=== PATIENT | male | born 1950 | race Caucasian/White ===

== ENCOUNTER 2017-12-22 21:25 | Emergency (ER) | payer MEDICARE, OTHER ==
[2017-12-22 22:08] LABS: BILIRUBIN,URINE SMALL (NEG); CLARITY,URINE CLEAR; COLOR,URINE AMBER; GLUCOSE,URINE NEGATIVE (NEG); NITRITE,URINE NEGATIVE (NEG); PH,URINE 5.5; PROTEIN,URINE NEGATIVE (NEG-TRACE)
[2017-12-22 22:12] LABS: BACTERIA,URINE 0 /HPF (0-FEW); RBC,URINE 0 /HPF (0-2); SQUAMOUS EPITHELIAL CELL,UR FEW /LPF; WBC,URINE OCC /HPF (0-4)
[2017-12-22 22:15] LABS: ANION GAP 10 (6-14); BLOOD UREA NITROGEN 20 mg/dL (8-26); BUN/CREATININE RATIO 17 (6-20); CALCIUM 8.4 mg/dL (8.5-10.1); CARBON DIOXIDE 25 mmol/L (21-32); CHLORIDE 105 mmol/L (98-107); CREATININE 1.2 mg/dL (0.7-1.3); GFR 60.6; GLUCOSE 110 mg/dL (70-99); POTASSIUM 4.3 mmol/L (3.5-5.1); SODIUM 140 mmol/L (136-145)
[2017-12-22 22:16] LABS: BASO % 0 % (0-3); EOS # 0.1 x10^3/uL (0.0-0.7); EOS % 1 % (0-3); HEMATOCRIT 37.9 % (39.0-53.0); HEMOGLOBIN 13.6 g/dL (13.0-17.5); LYMPH # 0.3 x10^3/uL (1.0-4.8); LYMPH % 4 % (24-48); MEAN CORPUSCULAR HEMOGLOBIN 36 pg (25-35); MEAN CORPUSCULAR HGB CONC 36 g/dL (31-37); MEAN CORPUSCULAR VOLUME 100 fL (79-100); MONO # 0.6 x10^3/uL (0.0-1.1); MONO % 8 % (0-9); NEUT # 6.9 x10^3uL (1.8-7.7); NEUT % 87 % (31-73); PLATELET COUNT 78 x10^3/uL (140-400); RED BLOOD COUNT 3.81 x10^6/uL (4.30-5.70); RED CELL DISTRIBUTION WIDTH 14.8 % (11.5-14.5)
[2017-12-22 22:17] LABS: ADD MAN DIFF? YES
[2017-12-22 22:20] LABS: ALBUMIN 3.2 g/dL (3.4-5.0); ALBUMIN/GLOBULIN RATIO 0.9 (1.0-1.7); ALK PHOS 76 U/L (46-116); ALT (SGPT) 23 U/L (16-63); AST (SGOT) 34 U/L (15-37); TOTAL PROTEIN 6.6 g/dL (6.4-8.2)
[2017-12-22] MEDS: IV NORMAL SALINE 1000ML BAG 1,000 ML IV (22:40)
[2017-12-22 22:56] LABS: % BANDS 3 % (0-9); % BASOS 1 % (0-3); % EOS 1 % (0-5); % LYMPHS 5 % (24-48); % MONOS 5 % (0-10); % SEGS 85 % (35-66); PLT ESTIMATE DECREASED (ADEQUATE)
[2017-12-22] MEDS: KETOROLAC 15 MG/ML VIAL. IV (23:21)
[2017-12-22] MEDS: MORPHINE SULFATE 2 MG/ML DISP.SYRIN. IV (23:27)
== END 2017-12-23 00:24 | disposition home or self-care (01) ==
LOC: ER 12-23 00:24
DX: R51 Headache (principal); N39.0 Urinary tract infection, site not specified; K76.6 Portal hypertension
CPT/HCPCS: 36415; 70450; 80053; 81001; 85007; 85025; 87086; 96374; 96375; 99285-25; J1885; J2270; J7030

== ENCOUNTER 2018-02-07 17:34 | Emergency (ER) | payer MEDICARE ==
[2018-02-07 17:02] LABS: ADD MAN DIFF? NO
[2018-02-07] MEDS: HYDROcodone/APAP 5/325MG 1 TAB TABLET PO (17:10)
[2018-02-07 17:12] LABS: BASO % 1 % (0-3); EOS # 0.2 x10^3/uL (0.0-0.7); EOS % 6 % (0-3); HEMATOCRIT 35.1 % (39.0-53.0); HEMOGLOBIN 12.7 g/dL (13.0-17.5); LYMPH # 0.7 x10^3/uL (1.0-4.8); LYMPH % 20 % (24-48); MEAN CORPUSCULAR HEMOGLOBIN 36 pg (25-35); MEAN CORPUSCULAR HGB CONC 36 g/dL (31-37); MEAN CORPUSCULAR VOLUME 99 fL (79-100); MONO # 0.5 x10^3/uL (0.0-1.1); MONO % 12 % (0-9); NEUT # 2.3 x10^3uL (1.8-7.7); NEUT % 61 % (31-73); PLATELET COUNT 113 x10^3/uL (140-400); RED BLOOD COUNT 3.53 x10^6/uL (4.30-5.70); RED CELL DISTRIBUTION WIDTH 14.7 % (11.5-14.5); WHITE BLOOD COUNT 3.7 x10^3/uL (4.0-11.0)
[2018-02-07 17:18] LABS: ANION GAP 7 (6-14); BLOOD UREA NITROGEN 16 mg/dL (8-26); BUN/CREATININE RATIO 13 (6-20); CALCIUM 8.3 mg/dL (8.5-10.1); CARBON DIOXIDE 27 mmol/L (21-32); CHLORIDE 106 mmol/L (98-107); CREATININE 1.2 mg/dL (0.7-1.3); GFR 60.6; GLUCOSE 109 mg/dL (70-99); POTASSIUM 3.8 mmol/L (3.5-5.1); SODIUM 140 mmol/L (136-145)
[2018-02-07 17:33] LABS: ALBUMIN 2.8 g/dL (3.4-5.0); ALBUMIN/GLOBULIN RATIO 0.7 (1.0-1.7); ALK PHOS 95 U/L (46-116); ALT (SGPT) 23 U/L (16-63); AST (SGOT) 29 U/L (15-37); TOTAL BILIRUBIN 2.2 mg/dL (0.2-1.0)
== END 2018-02-07 18:25 | disposition home or self-care (01) ==
LOC: ER 18:25
DX: L03.116 Cellulitis of left lower limb (principal); J45.909 Unspecified asthma, uncomplicated; K76.6 Portal hypertension
CPT/HCPCS: 36415; 80053; 83605; 85025; 99284

== ENCOUNTER → 2018-04-01 | Outpatient (CLI) | payer MEDICARE ==
[2018-03-19 13:08] VITALS: BP 137/64
[~2018-04-01] MED LIST: ACET-704 PO; CLIN300C8 PO; FURO20TA3 PO; HYDR-971 PO; LEVO750T31 PO; PROP20TA PO; SOFO400T PO; SPIR50TA4 PO; SULF1TAB24 PO; TAMS0.4C97 PO; [UNRECOGNIZED DRUG - OTHER] PO
== END | disposition home or self-care (01) ==
LOC: PMGWOUND 11:14
PROVIDERS: ATTEND Emergency Medicine Undersea and Hyperbaric Medicine
DX: S90.562A Insect bite (nonvenomous), left ankle, initial encounter (principal); K74.60 Unspecified cirrhosis of liver; J45.909 Unspecified asthma, uncomplicated; K21.9 Gastro-esophageal reflux disease without esophagitis; Z86.19 Personal history of other infectious and parasitic diseases; W57.XXXA Bitten or stung by nonvenomous insect and other nonvenomous arthropods, initial encounter; Y93.89 Activity, other specified; Y92.89 Other specified places as the place of occurrence of the external cause; Y99.8 Other external cause status
CPT/HCPCS: 97597

== ENCOUNTER → 2018-04-08 | Outpatient (CLI) | payer MEDICARE ==
[2018-03-19 13:08] VITALS: BP 137/64
== END | disposition home or self-care (01) ==
LOC: PMGWOUND 10:54
PROVIDERS: ATTEND Emergency Medicine Undersea and Hyperbaric Medicine
DX: S90.562D Insect bite (nonvenomous), left ankle, subsequent encounter (principal); J45.909 Unspecified asthma, uncomplicated; K21.9 Gastro-esophageal reflux disease without esophagitis; K74.60 Unspecified cirrhosis of liver; Z86.19 Personal history of other infectious and parasitic diseases; W57.XXXD Bitten or stung by nonvenomous insect and other nonvenomous arthropods, subsequent encounter
CPT/HCPCS: 97597

== ENCOUNTER → 2018-04-16 | Outpatient (CLI) | payer MEDICARE ==
[2018-03-19 13:08] VITALS: BP 137/64
== END | disposition home or self-care (01) ==
LOC: PMGWOUND 11:42
PROVIDERS: ATTEND Emergency Medicine Undersea and Hyperbaric Medicine
DX: S90.562D Insect bite (nonvenomous), left ankle, subsequent encounter (principal); J45.909 Unspecified asthma, uncomplicated; K21.9 Gastro-esophageal reflux disease without esophagitis; K74.60 Unspecified cirrhosis of liver; Z86.19 Personal history of other infectious and parasitic diseases; W57.XXXD Bitten or stung by nonvenomous insect and other nonvenomous arthropods, subsequent encounter
CPT/HCPCS: 97597

== ENCOUNTER → 2018-04-24 | Outpatient (CLI) | payer MEDICARE ==
[2018-03-19 13:08] VITALS: BP 137/64
== END | disposition home or self-care (01) ==
LOC: PMGWOUND 12:08
PROVIDERS: ATTEND Emergency Medicine Undersea and Hyperbaric Medicine
DX: S90.562D Insect bite (nonvenomous), left ankle, subsequent encounter (principal); J45.909 Unspecified asthma, uncomplicated; K21.9 Gastro-esophageal reflux disease without esophagitis; K74.60 Unspecified cirrhosis of liver; Z86.19 Personal history of other infectious and parasitic diseases; W57.XXXD Bitten or stung by nonvenomous insect and other nonvenomous arthropods, subsequent encounter
CPT/HCPCS: 99214; G0463

== ENCOUNTER → 2018-05-08 | Outpatient (CLI) | payer MEDICARE ==
[2018-03-19 13:08] VITALS: BP 137/64
== END | disposition home or self-care (01) ==
LOC: PMGWOUND 11:01
PROVIDERS: ATTEND Emergency Medicine Undersea and Hyperbaric Medicine
DX: T63.331D Toxic effect of venom of brown recluse spider, accidental (unintentional), subsequent encounter (principal); K21.9 Gastro-esophageal reflux disease without esophagitis; J45.909 Unspecified asthma, uncomplicated; K74.60 Unspecified cirrhosis of liver; Z86.19 Personal history of other infectious and parasitic diseases
CPT/HCPCS: 99213

== ENCOUNTER 2019-02-22 18:40 | Inpatient (IN) | payer MEDICARE ==
[~2019-02-22] VITALS: Ht 162.6 cm; Wt 109.5 kg
[~2019-02-22 18:40] MED LIST changes: +HYDR-3164 PO; -HYDR-971 PO
[2019-02-22 19:13] LABS: CLARITY,URINE CLEAR; COLOR,URINE ORANGE
[2019-02-22 19:19] LABS: RBC,URINE 0 /HPF (0-2)
[2019-02-22 19:20] LABS: BACTERIA,URINE 0 /HPF (0-FEW); SQUAMOUS EPITHELIAL CELL,UR FEW /LPF
--- NOTE | 2019-02-22 19:44 | PHYS DOC ---
Past Medical History Past Medical History: Hepatitis Additional Past Medical Histor: Hep C-treated, varices, portal hypertension Past Surgical History: Other Additional Past Surgical Histo: cyst removed from neck, TIPS Additional Information: Nonsmoker Alcohol Use: Occasionally Drug Use: None Adult General Chief Complaint Chief Complaint: LOWER EXTREMITY SWELLING HPI HPI 69 y/o male presents via EMS with report of bilateral lower leg swelling (R>L) x 2 days. EMS also reports concern for poor living conditions and inability for patient to care for self. Reports seeing patient's place of living is filthy, packed with garbage, and full of "rodent droppings" and "insects". Denies denies fever/chills. Denies chest pain. Denies history of DVT/PE or known family history of same. Review of Systems Review of Systems Constitutional: Denies fever or chills Eyes: Denies change in visual acuity, redness, or eye pain HENT: Denies nasal congestion or sore throat Respiratory: Denies cough or shortness of breath Cardiovascular: Denies chest pain or palpitations GI: Denies abdominal pain, nausea, vomiting, or diarrhea : Denies dysuria or hematuria Musculoskeletal: Denies back pain; reports leg swelling Integument: Denies rash or skin lesions; reports erythema to right leg Neurologic: Denies headache, focal weakness or sensory changes Complete systems were reviewed and found to be within normal limits, except as documented in this note. Current Medications Current Medications Current Medications Medications (Trade) Dose Ordered Sig/[place] Start Time Stop Time Status Last Admin Dose Admin Aspirin (David Aspirin) 325 mg 1X ONCE 02/22/19 19:45 02/22/19 19:46 DC 02/22/19 20:00 325 MG Allergies Allergies Allergies Coded Allergies Type Severity Reaction Last Updated Verified No Known Drug Allergies 10/06/15 No Physical Exam Physical Exam Constitutional: Well developed, well nourished, no acute distress, non-toxic appearance, poor hygiene HENT: Normocephalic, atraumatic, oropharynx moist, nose normal Eyes: Conjunctiva normal, no discharge Neck: Normal range of motion, no tenderness, supple, no meningeal signs Cardiovascular: Heart rate normal and regular rhythm Lungs & Thorax: Bilateral breath sounds clear to auscultation, no respiratory distress Abdomen: Soft, no tenderness Skin: Warm, dry, no erythema, no rash Extremities: RLE tenderness and anterior erythema, ROM intact, 2+ edema to RLE, 1+ to LLE Neurologic: Alert and oriented X 3, no focal deficits noted Psychologic: Affect normal, judgement normal Current Patient Data Vital Signs Vital Signs Date Time Temp Pulse Resp B/P (MAP) Pulse Ox O2 Delivery O2 Flow Rate FiO2 02/22/19 19:14 99.5 72 16 183/77 (112) 97 Room Air 99.5 Lab Values Laboratory Tests Test 02/22/19 18:55 02/22/19 19:45 Urine Collection Type Unknown Urine Color [place] Urine Clarity Clear Urine pH Urine Specific [place] 1.025 Urine Protein mg/dL (NEG-TRACE) Urine Glucose (UA) mg/dL (NEG) Urine Ketones (Stick) mg/dL (NEG) Urine Blood (NEG) Urine Nitrite (NEG) Urine Bilirubin (NEG) Urine Urobilinogen Dipstick mg/dL (0.2 mg/dL) Urine Leukocyte Esterase (NEG) Urine RBC 0 /HPF (0-2) Urine WBC 1-4 /HPF (0-4) Urine Squamous Epithelial Cells Few /LPF Urine Bacteria 0 /HPF (0-FEW) Urine Mucus Slight /LPF Urine Opiates Screen Neg (NEG) Urine Methadone Screen Neg (NEG) Urine Barbiturates Neg (NEG) Urine Phencyclidine Screen Neg (NEG) Urine Amphetamine/Methamphetamine Neg (NEG) Urine Benzodiazepines Screen Neg (NEG) Urine Cocaine Screen Neg (NEG) Urine Cannabinoids Screen Neg (NEG) Urine Ethyl Alcohol Neg (NEG) White Blood Count 5.8 x10^3/uL (4.0-11.0) Red Blood Count 3.93 x10^6/uL (4.30-5.70) L Hemoglobin 14.1 g/dL (13.0-17.5) Hematocrit 39.2 % (39.0-53.0) Mean Corpuscular Volume 100 fL (79-100) Mean Corpuscular Hemoglobin 36 pg (25-35) H Mean Corpuscular Hemoglobin Concent 36 g/dL (31-37) Red Cell Distribution Width 14.4 % (11.5-14.5) Platelet Count 90 x10^3/uL (140-400) L Neutrophils (%) (Auto) 77 % (31-73) H Lymphocytes (%) (Auto) 10 % (24-48) L Monocytes (%) (Auto) 11 % (0-9) H Eosinophils (%) (Auto) 1 % (0-3) Basophils (%) (Auto) 1 % (0-3) Neutrophils # (Auto) 4.5 x10^3/uL (1.8-7.7) Lymphocytes # (Auto) 0.6 x10^3/uL (1.0-4.8) L Monocytes # (Auto) 0.7 x10^3/uL (0.0-1.1) Eosinophils # (Auto) 0.1 x10^3/uL (0.0-0.7) Basophils # (Auto) 0.1 x10^3/uL (0.0-0.2) Prothrombin Time 15.4 SEC (11.7-14.0) H Prothrombin Time INR 1.3 (0.8-1.1) H Activated Partial Thromboplast Time 26 SEC (24-38) D-Dimer (Edwige) 1.81 ug/mlFEU (0.00-0.50) H Sodium Level 142 mmol/L (136-145) Potassium Level 3.9 mmol/L (3.5-5.1) Chloride Level 106 mmol/L (98-107) Carbon Dioxide Level 24 mmol/L (21-32) Anion Gap 12 (6-14) Blood Urea Nitrogen 25 mg/dL (8-26) Creatinine 1.4 mg/dL (0.7-1.3) H Estimated GFR (Cockcroft-Gault) 50.4 BUN/Creatinine Ratio 18 (6-20) Glucose Level 99 mg/dL (70-99) Lactic Acid Level 1.9 mmol/L (0.4-2.0) Calcium Level 8.5 mg/dL (8.5-10.1) Magnesium Level 1.6 mg/dL (1.8-2.4) L Total Bilirubin 5.0 mg/dL (0.2-1.0) H Aspartate Amino Transferase (AST) 55 U/L (15-37) H Alanine Aminotransferase (ALT) 31 U/L (16-63) Alkaline Phosphatase 46 U/L (46-116) Creatine Kinase 317 U/L (39-308) H Creatine Kinase MB (Mass) 1.1 ng/mL (0.0-3.6) Creatine Kinase MB Relative Index 0.3 % (0-4) Troponin I Quantitative 0.033 ng/mL (0.000-0.055) DA-Ngl-S-Type Natriuretic Peptide 222 pg/mL (0-124) H Total Protein 6.6 g/dL (6.4-8.2) Albumin 3.1 g/dL (3.4-5.0) L Albumin/Globulin Ratio 0.9 (1.0-1.7) L Lipase 143 U/L (73-393) Ethyl Alcohol Level < 10 mg/dL (0-10) Laboratory Tests 02/22/19 19:45 Laboratory Tests 02/22/19 19:45 EKG EKG @1934 NSR at 68bpm, NO ST elevation, Q wave I, II, and AVL Radiology/Procedures Radiology/Procedures PROCEDURE: VENOUS LOWER EXTREMITY RIGHT Exam: Right lower extremity venous duplex study INDICATION: Leg swelling TECHNIQUE: Using a combination of real-time ultrasound imaging and color-flow and pulse Doppler imaging techniques along with graded compression and augmentation, duplex evaluation of the deep venous systems of the rightlower extremity was performed. Multiple images were obtained. Findings: There is no sonographic evidence for deep venous thrombosis involving the visualized deep venous structures of the right lower extremity. Right inguinal lymph node measuring 2.1 cm in long axis. IMPRESSION: 1. No acute DVT in the right lower extremities. 2. A 2.1 cm lymph node in the right inguinal region which is nonspecific and may be reactive. Short-term imaging or clinical follow-up is recommended to ensure resolution. Electronically signed by: Mario Carr MD (02/22/2019 8:03 PM) [facility] PROCEDURE: CHEST AP ONLY Chest radiograph 02/23/2019 12:02 AM INDICATION: Shortness of air COMPARISON: October 10, 2015 TECHNIQUE: Portable frontal semi-upright view of the chest is provided. FINDINGS: The cardiomediastinal silhouette is borderline enlarged. There are no pleural effusions. There is no pulmonary vascular congestion. There is no pneumothorax. The lungs are clear. No significant osseous abnormality is identified. IMPRESSION: Borderline enlarged cardiomediastinal silhouette which may reflect cardiomyopathy versus pericardial effusion. Findings appear progressed since October 10, 2015. Electronically signed by: Breana Webb MD (02/23/2019 9:31 AM) [id number] PROCEDURE: CT ANGIOGRAPHY CHEST CTA chest with contrast dated 2018. Comparison made to 09/29/2015. CLINICAL INDICATION: Shortness of breath. Elevated d-dimer. Evaluate for pulmonary embolus. TECHNIQUE: Contiguous axial imaging the chest performed following the intravenous demonstration of 75 cc Omnipaque 350. Study was performed as dedicated PE protocol with thin cut coronal MIPS 3-D reconstruction. One or more of the following individualized dose reduction techniques were utilized for this examination: 1. Automated exposure control 2. Adjustment of the mA and/or kV according to patient size 3. Use of iterative reconstruction technique. FINDINGS: Contrast bolus is adequate. No evidence of central, lobar or segmental pulmonary embolus. The subsegmental branches are not well evaluated based on technique. Heart size mildly enlarged. No pericardial effusion. No mediastinal, hilar or axillary lymphadenopathy. Thyroid gland unremarkable. Central airways are patent. Mild diffuse bronchial wall thickening. No consolidation or pleural effusion. No pneumothorax. Images of the upper abdomen show a TIPS in place. Spleen is moderately enlarged. The liver is nodular in contour. Bone windows show no acute findings. Mild multilevel spondylosis. IMPRESSION: 1. No evidence of central, lobar or segmental pulmonary embolus. 2. Clear lungs. 3. Findings consistent with cirrhosis with splenomegaly and portal hypertension. TIPS in place. Electronically signed by: Barrett Diane MD (02/23/2019 5:34 AM) [facility] Course & Med Decision Making Course & Med Decision Making Pertinent Labs and Imaging studies reviewed. (See chart for details) Patient presents with report of BLE edema x 2 day. Significant edema and erythema noted to RLE. Venous doppler negative. Labs obtained and posted to chart. Troponin WNL. EKG stable. BNP WNL. Hypomagnesemia addressed. CXR stable. IVF hydration given. Concern for cellulitis. Empiric antibiotics given. D-dimer elevated. CTA negative for PE. Patient presented with EMS, who had reported concern for patient's inability to care for self due to patient's dwelling's condition. EMS reporting would be appropriate case management consultation. Patient requiring admission for further evaluation and treatment. Discussed with Dr. Padilla (hospitalist) who is in agreement with admit. Case management consult placed. Discussed findings and plan with patient, who acknowledges understanding and agreement. Dragon Disclaimer Dragon Disclaimer This electronic medical record was generated, in whole or in part, using a voice recognition dictation system. Departure Departure Impression: Primary Impression: Cellulitis Additional Impressions: Self-care deficit in patient living alone Hypomagnesemia Disposition: ADMITTED INPATIENT Admitting Physician: NEHEMIAS Choudhary) Condition: STABLE Referrals: NO PCP (PCP) Scripts Docusate Sodium (COLACE) 100 Mg Capsule 1 CAP PO BID PRN for CONSTIPATION, #30 CAP Prov: CLOVIS SALAZAR MD 02/27/19 Oxycodone/Apap 5-325 (PERCOCET 5-325 MG TABLET ) 1 Each Tablet 1 TAB PO PRN Q4HRS PRN for PAIN, #20 TAB Prov: CLOVIS SALAZAR MD 02/27/19 Cephalexin (KEFLEX) 500 Mg Capsule 1 CAP PO TID for cellulitis, #21 CAP Prov: CLOVIS SALAZAR MD 02/27/19 [Fluconazole] 100 MG TABLET No Conflict Check 200 MG PO DAILY for infection, #7 TAB Prov: CLOVIS SALAZAR MD 02/27/19 Tamsulosin Hcl (FLOMAX) 0.4 Mg Cap.er.24h 0.4 MG PO QHS for prostate, #30 CAP.SR 2 Refills Prov: CLOVIS SALAZAR MD 02/27/19 Problem Qualifiers Primary Impression: Cellulitis Site of cellulitis: extremity Site of cellulitis of extremity: lower extremity Laterality: right Qualified Codes: L03.115 - Cellulitis of right lower limb BARRETT ROPER DO Feb 22, 2019 19:43
[2019-02-22] MEDS ORDERED: ASPIRIN 325 MG TABLET PO ONE (19:45)
[2019-02-22] MEDS ORDERED: ONDANSETRON PF 4 MG/2 ML VIAL. IV PRN (20:00)
[2019-02-22] MEDS ORDERED: fentaNYL PF VIAL 100 MCG/2 ML VIAL IV PRN (20:00)
[2019-02-22 20:04] LABS: BASO # 0.1 x10^3/uL (0.0-0.2); BASO % 1 % (0-3); EOS # 0.1 x10^3/uL (0.0-0.7); EOS % 1 % (0-3); HEMATOCRIT 39.2 % (39.0-53.0); HEMOGLOBIN 14.1 g/dL (13.0-17.5); LYMPH # 0.6 x10^3/uL (1.0-4.8); LYMPH % 10 % (24-48); MEAN CORPUSCULAR HEMOGLOBIN 36 pg (25-35); MEAN CORPUSCULAR HGB CONC 36 g/dL (31-37); MEAN CORPUSCULAR VOLUME 100 fL (79-100); MONO # 0.7 x10^3/uL (0.0-1.1); MONO % 11 % (0-9); NEUT # 4.5 x10^3/uL (1.8-7.7); NEUT % 77 % (31-73); PLATELET COUNT 90 x10^3/uL (140-400); RED BLOOD COUNT 3.93 x10^6/uL (4.30-5.70); RED CELL DISTRIBUTION WIDTH 14.4 % (11.5-14.5); WHITE BLOOD COUNT 5.8 x10^3/uL (4.0-11.0)
--- NOTE | 2019-02-22 20:06 | RAD ---
Exam: Right lower extremity venous duplex study INDICATION: Leg swelling TECHNIQUE: Using a combination of real-time ultrasound imaging and color-flow and pulse Doppler imaging techniques along with graded compression and augmentation, duplex evaluation of the deep venous systems of the rightlower extremity was performed. Multiple images were obtained. Findings: There is no sonographic evidence for deep venous thrombosis involving the visualized deep venous structures of the right lower extremity. Right inguinal lymph node measuring 2.1 cm in long axis. IMPRESSION: 1. No acute DVT in the right lower extremities. 2. A 2.1 cm lymph node in the right inguinal region which is nonspecific and may be reactive. Short-term imaging or clinical follow-up is recommended to ensure resolution. Electronically signed by: Mario aCrr MD (02/22/2019 8:03 PM) [facility]
[2019-02-22 20:08] LABS: PROTHROMBIN TIME PATIENT 15.4 SEC (11.7-14.0)
[2019-02-22] MEDS ORDERED: CLINDAMYCIN 600MG PREMIX 50 ML IV ONE (20:15)
[2019-02-22 20:19] LABS: CALCIUM 8.5 mg/dL (8.5-10.1); CREATININE 1.4 mg/dL (0.7-1.3); GFR 50.4; POTASSIUM 3.9 mmol/L (3.5-5.1)
[2019-02-22 20:28] LABS: ALBUMIN 3.1 g/dL (3.4-5.0); ALBUMIN/GLOBULIN RATIO 0.9 (1.0-1.7); MAGNESIUM 1.6 mg/dL (1.8-2.4); TOTAL PROTEIN 6.6 g/dL (6.4-8.2)
[2019-02-22 20:45] LABS: BARBITURATES NEG (NEG); BENZODIAZEPINES NEG (NEG); CANNABINOIDS NEG (NEG); COCAINE NEG (NEG); METHADONE NEG (NEG); OPIATES NEG (NEG); PHENCYCLIDINE NEG (NEG)
[2019-02-22 20:46] LABS: AMPHETAMINE/METHAMPHETAMINE NEG (NEG)
[2019-02-22 21:14] VITALS: BP 153/51
[2019-02-22] MEDS ORDERED: IOHEXOL 350 MG/ML 100 ML VIAL. IV ONE (22:00)
[2019-02-22] MEDS ORDERED: CONTRAST GIVEN. MC PRN (22:00)
[2019-02-22 23:00] VITALS: BP 111/43
[2019-02-23] MEDS ORDERED: MAGNESIUM SULFATE 2GM 50 ML IV ONE (00:15)
[2019-02-23 03:00] VITALS: BP 116/56
[2019-02-23] MEDS ORDERED: IOHEXOL 350 MG/ML 100 ML VIAL. IV ONE (05:15)
[2019-02-23] MEDS ORDERED: CONTRAST GIVEN. MC PRN (05:15)
--- NOTE | 2019-02-23 05:37 | RAD ---
CTA chest with contrast dated 2018. Comparison made to 09/29/2015. CLINICAL INDICATION: Shortness of breath. Elevated d-dimer. Evaluate for pulmonary embolus. TECHNIQUE: Contiguous axial imaging the chest performed following the intravenous demonstration of 75 cc Omnipaque 350. Study was performed as dedicated PE protocol with thin cut coronal MIPS 3-D reconstruction. One or more of the following individualized dose reduction techniques were utilized for this examination: 1. Automated exposure control 2. Adjustment of the mA and/or kV according to patient size 3. Use of iterative reconstruction technique. FINDINGS: Contrast bolus is adequate. No evidence of central, lobar or segmental pulmonary embolus. The subsegmental branches are not well evaluated based on technique. Heart size mildly enlarged. No pericardial effusion. No mediastinal, hilar or axillary lymphadenopathy. Thyroid gland unremarkable. Central airways are patent. Mild diffuse bronchial wall thickening. No consolidation or pleural effusion. No pneumothorax. Images of the upper abdomen show a TIPS in place. Spleen is moderately enlarged. The liver is nodular in contour. Bone windows show no acute findings. Mild multilevel spondylosis. IMPRESSION: 1. No evidence of central, lobar or segmental pulmonary embolus. 2. Clear lungs. 3. Findings consistent with cirrhosis with splenomegaly and portal hypertension. TIPS in place. Electronically signed by: Barrett Diane MD (02/23/2019 5:34 AM) [facility]
--- NOTE | 2019-02-23 06:38 | EKG ---
[facility] [address] [place] [address] Test Date: 2019-02-22 Test Time: 19:34:11 Pat Name: KWAME MERINO Department: Room: 422 Gender: M Rn Urology: : 1950 Requested By: SERA ROPER Order Number: [id number] Reading MD: Arnulfo Ybarra MD Measurements Intervals [place] Rate: 68 P: 54 MI: 126 QRS: -19 QRSD: 102 T: 49 QT: 380 QTc: 409 Interpretive Statements SINUS RHYTHM Electronically Signed On 03-04-2019 22:23:56 CDT by Arnulfo Ybarra MD
[2019-02-23 07:00] VITALS: BP 121/59
--- NOTE | 2019-02-23 07:35 | NUR ---
Pt arrived to unit last night at approx 5 via gurney accompanied with ED staff. Pt transfered to bed with standby assist. Patient was oriented to room and call light. VSS, Assessment completed, medical history was obtained, and pt reports no home medications. Redness noted to right leg which was outlined. CT called requesting a 20g to be placed to AC for CT scan. This RN attempted without success. While trying IV, a bed bug was noticed crawling away from the patient on the sheets. Pt placed in isolation. When patient was notified he was very frustrated with the situation but voiced understanding. House sup, ED, and CT were notified. Due to bedbugs alternatives were ordered but d-dimmer was elevated and CT was reordered. House sup placed 20g to L AC. Pt showered and linens were changed pt was then sent to CT.
--- NOTE | 2019-02-23 09:34 | RAD ---
Chest radiograph 02/23/2019 12:02 AM INDICATION: Shortness of air COMPARISON: October 10, 2015 TECHNIQUE: Portable frontal semi-upright view of the chest is provided. FINDINGS: The cardiomediastinal silhouette is borderline enlarged. There are no pleural effusions. There is no pulmonary vascular congestion. There is no pneumothorax. The lungs are clear. No significant osseous abnormality is identified. IMPRESSION: Borderline enlarged cardiomediastinal silhouette which may reflect cardiomyopathy versus pericardial effusion. Findings appear progressed since October 10, 2015. Electronically signed by: Breana Webb MD (02/23/2019 9:31 AM) [id number]
--- NOTE | 2019-02-23 09:55 | PDOC1 ---
History and Physical Date of Admission Date of Admission DATE: 02/23/19 TIME: 09:44 Identification/Chief Complaint Chief Complaint RLE redness, pain Source Source: Chart review, Patient History of Present Illness History of Present Illness Mr. Herman has new RLE pain, redness, sudden on saturday and saturday, he says his leg was fine on saturday. 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 he said the EMS was upset with how his house looked, he may be a hoarder Past Medical History Cardiovascular: HTN GI: Other Musculoskeletal: low back pain Infectious disease: Other Family History Family History: Diabetes, Hypertension Social History Smoke: No ALCOHOL: rare Drugs: None Current Problem List Problem List Problems Medical Problems: (1) Cellulitis Status: Acute (2) Self-care deficit in patient living alone Status: Acute Current Medications Current Medications Current Medications Aspirin (David Aspirin) 325 mg 1X ONCE PO Last administered on 02/22/19at 20:00; Start 02/22/19 at 19:45; Stop 02/22/19 at 19:46; Status DC Clindamycin Phosphate 50 ml @ 100 mls/hr 1X ONCE IV Last administered on 02/22/19at 20:16; Start 02/22/19 at 20:15; Stop 02/22/19 at 20:44; Status DC Ondansetron HCl (Zofran) 4 mg PRN Q8HRS PRN IV NAUSEA/VOMITING; Start 02/22/19 at 20:00; Stop 02/23/19 at 19:59 Fentanyl Citrate (Fentanyl 2ml Vial) 25 mcg PRN Q2HRS PRN IV PAIN; Start 02/22/19 at 20:00 Iohexol (Omnipaque 350 Mg/ml) 75 ml 1X ONCE IV Last administered on 02/23/19at 05:26; Start 02/22/19 at 22:00; Stop 02/22/19 at 22:01; Status DC Info (CONTRAST GIVEN -- Rx MONITORING) 1 each PRN DAILY PRN MC SEE COMMENTS; Garrick tart 02/22/19 at 22:00; Stop 02/24/19 at 21:59 Magnesium Sulfate 50 ml @ 25 mls/hr 1X ONCE IV Last administered on 02/23/19at 01:00; Start 02/23/19 at 00:15; Stop 02/23/19 at 02:14; Status DC Iohexol (Omnipaque 350 Mg/ml) 75 ml 1X ONCE IV ; Start 02/23/19 at 05:15; Stop 02/23/19 at 05:16; Status DC Info (CONTRAST GIVEN -- Rx MONITORING) 1 each PRN DAILY PRN MC SEE COMMENTS; Start 02/23/19 at 05:15; Stop 02/25/19 at 05:14 Active Scripts Active Reported No Known Medications Prior To Admisstion (Info) Each 1 Each MC DAILY Allergies Allergies: Coded Allergies: No Known Drug Allergies (Unverified , 10/06/15) ROS General: No: Chills, Night Sweats, Fatigue, Malaise, Appetite, Other PSYCHOLOGICAL ROS: YES: Behavioral Disorder, Sleep disturbances; No: Anxiety, Concentration difficultie, Decreased libido, Depression, Disorientation, Hallucinations, Hostility, Irritablity, Memory difficulties, Mood Swings, Obsessive thoughts, Suicidal ideation, Other Eyes: No Blurry vision, No Decreased vision, No Double vision, No Dry eyes, No Excessive tearing, No Eye Pain, No Itchy Eyes, No Loss of vision, No Photophobia, No Scotomata, No Uses contacts, No Uses glasses, No Other HEENT: No: Heacaches, Visual Changes, Hearing change, Nasal congestion, Nasal discharge, Oral lesions, Sinus pain, Sore Throat, Epistaxis, Sneezing, Snoring, Tinnitus, Vertigo, Vocal changes, Other ALLERGY AND IMMUNOLOGY: YES: Hives Hematological and Lymphatic: No: Bleeding Problems, Blood Clots, Blood Transfusions, Brusing, Night Sweats, Pallor, Swollen Lymph Nodes, Other Respiratory: No: Cough, Hemoptysis, Orthopnea, Pleuritic Pain, Shortness of breath, SOB with excertion, Sputum Changes, Stridor, Tachypnea, Wheezing, Other Cardiovascular: No Chest Pain, No Palpitations, No Orthopnea, No Paroxysmal Noc. Dyspnea, No Edema, No Lt Headedness, No Other Genitourinary: No Dysuria, No Frequency, No Incontinence, No Hematuria, No Retention, No Discharge, No Urgency, No Pain, No Flank Pain, No Other, No , No , No , No , No , No , No Musculoskeletal: Yes Joint Swelling, Yes Swelling In:; No Gait Disturbance, No Joint Pain, No Joint Stiffness, No Muscle Pain, No Muscular Weakness, No Pain In:, No Other Neurological: No Behavorial Changes, No Bowel/Bladder ControlChng, No Confusion, No Dizziness, No Gait Disturbance, No Headaches, No Impaired Coord/balance, No Memory Loss, No Numbness/Tingling, No Seizures, No Speech Problems, No Tremors, No Visual Changes, No Weakness, No Other Skin: Yes Dry Skin Physical Exam General: Alert, Oriented X3, Cooperative, mild distress HEENT: PERRLA, EOMI, Mucous membr. moist/pink Lungs: Clear to auscultation, Normal air movement Heart: S1S2, RRR, no gallops, no murmurs Abdomen: Normal bowel sounds, Soft Rectal Exam: not examined Extremities: No clubbing, No cyanosis, Other (RLE redness, clearing, ) Skin: No significant lesion, Other (diffuse redness, clearing from marker lines made yesterday, up to thigh and down to ankle right side, blanchable this AM) Neuro: Normal speech, Normal tone, Sensation intact Psych/Mental Status: Mental status NL, Mood NL Vitals Vitals Vital Signs Date Time Temp Pulse Resp B/P (MAP) Pulse Ox O2 Delivery O2 Flow Rate FiO2 02/23/19 07:00 97.7 58 16 121/59 (79) 97 Room Air 97.7 Labs Labs Laboratory Tests Test 02/22/19 18:55 02/22/19 19:45 Urine Collection Type Unknown Urine Color [place] Urine Clarity Clear Urine pH Urine Specific [place] 1.025 Urine Protein mg/dL (NEG-TRACE) Urine Glucose (UA) mg/dL (NEG) Urine Ketones (Stick) mg/dL (NEG) Urine Blood (NEG) Urine Nitrite (NEG) Urine Bilirubin (NEG) Urine Urobilinogen Dipstick mg/dL (0.2 mg/dL) Urine Leukocyte Esterase (NEG) Urine RBC 0 /HPF (0-2) Urine WBC 1-4 /HPF (0-4) Urine Squamous Epithelial Cells Few /LPF Urine Bacteria 0 /HPF (0-FEW) Urine Mucus Slight /LPF Urine Opiates Screen Neg (NEG) Urine Methadone Screen Neg (NEG) Urine Barbiturates Neg (NEG) Urine Phencyclidine Screen Neg (NEG) Urine Amphetamine/Methamphetamine Neg (NEG) Urine Benzodiazepines Screen Neg (NEG) Urine Cocaine Screen Neg (NEG) Urine Cannabinoids Screen Neg (NEG) Urine Ethyl Alcohol Neg (NEG) White Blood Count 5.8 x10^3/uL (4.0-11.0) Red Blood Count 3.93 x10^6/uL (4.30-5.70) Hemoglobin 14.1 g/dL (13.0-17.5) Hematocrit 39.2 % (39.0-53.0) Mean Corpuscular Volume 100 fL (79-100) Mean Corpuscular Hemoglobin 36 pg (25-35) Mean Corpuscular Hemoglobin Concent 36 g/dL (31-37) Red Cell Distribution Width 14.4 % (11.5-14.5) Platelet Count 90 x10^3/uL (140-400) Neutrophils (%) (Auto) 77 % (31-73) Lymphocytes (%) (Auto) 10 % (24-48) Monocytes (%) (Auto) 11 % (0-9) Eosinophils (%) (Auto) 1 % (0-3) Basophils (%) (Auto) 1 % (0-3) Neutrophils # (Auto) 4.5 x10^3/uL (1.8-7.7) Lymphocytes # (Auto) 0.6 x10^3/uL (1.0-4.8) Monocytes # (Auto) 0.7 x10^3/uL (0.0-1.1) Eosinophils # (Auto) 0.1 x10^3/uL (0.0-0.7) Basophils # (Auto) 0.1 x10^3/uL (0.0-0.2) Prothrombin Time 15.4 SEC (11.7-14.0) Prothromb Time International Ratio 1.3 (0.8-1.1) Activated Partial Thromboplast Time 26 SEC (24-38) D-Dimer (Edwige) 1.81 ug/mlFEU (0.00-0.50) Sodium Level 142 mmol/L (136-145) Potassium Level 3.9 mmol/L (3.5-5.1) Chloride Level 106 mmol/L (98-107) Carbon Dioxide Level 24 mmol/L (21-32) Anion Gap 12 (6-14) Blood Urea Nitrogen 25 mg/dL (8-26) Creatinine 1.4 mg/dL (0.7-1.3) Estimated GFR (Cockcroft-Gault) 50.4 BUN/Creatinine Ratio 18 (6-20) Glucose Level 99 mg/dL (70-99) Lactic Acid Level 1.9 mmol/L (0.4-2.0) Calcium Level 8.5 mg/dL (8.5-10.1) Magnesium Level 1.6 mg/dL (1.8-2.4) Total Bilirubin 5.0 mg/dL (0.2-1.0) Aspartate Amino Transf (AST/SGOT) 55 U/L (15-37) Alanine Aminotransferase (ALT/SGPT) 31 U/L (16-63) Alkaline Phosphatase 46 U/L (46-116) Creatine Kinase 317 U/L (39-308) Creatine Kinase MB (Mass) 1.1 ng/mL (0.0-3.6) Creatine Kinase MB Relative Index 0.3 % (0-4) Troponin I Quantitative 0.033 ng/mL (0.000-0.055) OB-Ixy-O-Type Natriuretic Peptide 222 pg/mL (0-124) Total Protein 6.6 g/dL (6.4-8.2) Albumin 3.1 g/dL (3.4-5.0) Albumin/Globulin Ratio 0.9 (1.0-1.7) Lipase 143 U/L (73-393) Ethyl Alcohol Level < 10 mg/dL (0-10) Laboratory Tests Test 02/22/19 18:55 02/22/19 19:45 Urine Collection Type Unknown Urine Color [place] Urine Clarity Clear Urine pH Urine Specific [place] 1.025 Urine Protein mg/dL (NEG-TRACE) Urine Glucose (UA) mg/dL (NEG) Urine Ketones (Stick) mg/dL (NEG) Urine Blood (NEG) Urine Nitrite (NEG) Urine Bilirubin (NEG) Urine Urobilinogen Dipstick mg/dL (0.2 mg/dL) Urine Leukocyte Esterase (NEG) Urine RBC 0 /HPF (0-2) Urine WBC 1-4 /HPF (0-4) Urine Squamous Epithelial Cells Few /LPF Urine Bacteria 0 /HPF (0-FEW) Urine Mucus Slight /LPF Urine Opiates Screen Neg (NEG) Urine Methadone Screen Neg (NEG) Urine Barbiturates Neg (NEG) Urine Phencyclidine Screen Neg (NEG) Urine Amphetamine/Methamphetamine Neg (NEG) Urine Benzodiazepines Screen Neg (NEG) Urine Cocaine Screen Neg (NEG) Urine Cannabinoids Screen Neg (NEG) Urine Ethyl Alcohol Neg (NEG) White Blood Count 5.8 x10^3/uL (4.0-11.0) Red Blood Count 3.93 x10^6/uL (4.30-5.70) Hemoglobin 14.1 g/dL (13.0-17.5) Hematocrit 39.2 % (39.0-53.0) Mean Corpuscular Volume 100 fL (79-100) Mean Corpuscular Hemoglobin 36 pg (25-35) Mean Corpuscular Hemoglobin Concent 36 g/dL (31-37) Red Cell Distribution Width 14.4 % (11.5-14.5) Platelet Count 90 x10^3/uL (140-400) Neutrophils (%) (Auto) 77 % (31-73) Lymphocytes (%) (Auto) 10 % (24-48) Monocytes (%) (Auto) 11 % (0-9) Eosinophils (%) (Auto) 1 % (0-3) Basophils (%) (Auto) 1 % (0-3) Neutrophils # (Auto) 4.5 x10^3/uL (1.8-7.7) Lymphocytes # (Auto) 0.6 x10^3/uL (1.0-4.8) Monocytes # (Auto) 0.7 x10^3/uL (0.0-1.1) Eosinophils # (Auto) 0.1 x10^3/uL (0.0-0.7) Basophils # (Auto) 0.1 x10^3/uL (0.0-0.2) Prothrombin Time 15.4 SEC (11.7-14.0) Prothromb Time International Ratio 1.3 (0.8-1.1) Activated Partial Thromboplast Time 26 SEC (24-38) D-Dimer (Edwige) 1.81 ug/mlFEU (0.00-0.50) Sodium Level 142 mmol/L (136-145) Potassium Level 3.9 mmol/L (3.5-5.1) Chloride Level 106 mmol/L (98-107) Carbon Dioxide Level 24 mmol/L (21-32) Anion Gap 12 (6-14) Blood Urea Nitrogen 25 mg/dL (8-26) Creatinine 1.4 mg/dL (0.7-1.3) Estimated GFR (Cockcroft-Gault) 50.4 BUN/Creatinine Ratio 18 (6-20) Glucose Level 99 mg/dL (70-99) Lactic Acid Level 1.9 mmol/L (0.4-2.0) Calcium Level 8.5 mg/dL (8.5-10.1) Magnesium Level 1.6 mg/dL (1.8-2.4) Total Bilirubin 5.0 mg/dL (0.2-1.0) Aspartate Amino Transf (AST/SGOT) 55 U/L (15-37) Alanine Aminotransferase (ALT/SGPT) 31 U/L (16-63) Alkaline Phosphatase 46 U/L (46-116) Creatine Kinase 317 U/L (39-308) Creatine Kinase MB (Mass) 1.1 ng/mL (0.0-3.6) Creatine Kinase MB Relative Index 0.3 % (0-4) Troponin I Quantitative 0.033 ng/mL (0.000-0.055) SQ-Cgz-J-Type Natriuretic Peptide 222 pg/mL (0-124) Total Protein 6.6 g/dL (6.4-8.2) Albumin 3.1 g/dL (3.4-5.0) Albumin/Globulin Ratio 0.9 (1.0-1.7) Lipase 143 U/L (73-393) Ethyl Alcohol Level < 10 mg/dL (0-10) VTE Prophylaxis Ordered VTE Prophylaxis Devices: Yes VTE Pharmacological Prophylaxi: No Assessment/Plan Assessment/Plan cellulitis, RLE leg pain obesity, BMI 42 prior liver mass, with hep c, treated with harvoni, needs outpatient f/u cirrhosis with hyperbilirubin, CLOVIS SALAZAR MD Feb 23, 2019 09:55
--- NOTE | 2019-02-23 09:59 | NUR ---
Pt admited with LE edema and cellulitis. Notes reports self care deficits. Would benefit from PT/OT assessment to ensure safe discharge plan. Please write PT/OT eval and treat ordes if you agree. Addendum: 02/23/19 at 1000 by HARRY HARRIS PT Amended: Links added.
[2019-02-23] MEDS ORDERED: CLINDAMYCIN 600MG PREMIX 50 ML IV ONE (10:00)
[2019-02-23 11:00] VITALS: BP 123/61
--- NOTE | 2019-02-23 14:31 | NUR ---
SS following for discharge planning. SS reviewed pt chart. Pt is from home and is currently on room air. No discharge needs noted at this time. SS will continue to follow for discharge planning.
[2019-02-23 15:00] VITALS: BP 131/64
--- NOTE | 2019-02-23 15:02 | RAD ---
Limited right upper quadrant ultrasound 02/23/2019 INDICATION: Right upper quadrant pain. Elevated bilirubin COMPARISON STUDY: CT angiography chest, earlier same day. Abdominal ultrasound January 18, 2016. Discussion: Ultrasound evaluation of the right upper quadrant was performed. Static images are submitted to PACS. Visualized portions of the pancreas are unremarkable. The liver is within normal limits in regards to size measuring 15.3 cm longitudinally. Liver contour is nodular consistent with provided history of cirrhosis. No focal hepatic lesions are identified on provided imaging of the liver. A intrahepatic portal venous shunt is noted which appears to be grossly patent. Duplex evaluation was not performed. The gallbladder is unremarkable in appearance. The right kidney is normal in appearance measuring 10.3 cm in length. IMPRESSION: Morphologic changes of the liver consistent with cirrhosis. TIPS shunt appears grossly patent, though duplex evaluation was not performed. Electronically signed by: John Hdz MD (02/23/2019 2:59 PM) [id number]
[2019-02-23] MEDS: CLINDAMYCIN 600MG PREMIX 50 ML IV SCH ×2 (15:39→21:14)
[2019-02-23 19:20] VITALS: BP 122/38
[2019-02-23 23:48] VITALS: BP 113/49
[2019-02-24 03:44] VITALS: BP 117/50
[2019-02-24] MEDS: CLINDAMYCIN 600MG PREMIX 50 ML IV SCH (05:09)
[2019-02-24 07:00] VITALS: BP 125/62
--- NOTE | 2019-02-24 09:07 | PDOC ---
PROGRESS NOTES Chief Complaint Chief Complaint cellulitis, RLE leg pain obesity, BMI 42 prior liver mass, with hep c, treated with harvoni, needs outpatient f/u cirrhosis with hyperbilirubin, History of Present Illness History of Present Illness rash is now worse today after looking more cleared yesterday on clindamycin, will consult ID, change to vanco, renal fxn is a concern, poss CKD 3 he complains of leg pain and cramps, start flexeril labs pending,, bili 5 yesterday, he reports orange urine for a period of time Vitals Vitals Vital Signs Date Time Temp Pulse Resp B/P (MAP) Pulse Ox O2 Delivery O2 Flow Rate FiO2 02/24/19 07:00 98.1 62 16 125/62 (83) 97 Room Air 98.1 Physical Exam General: Alert, Oriented X3, Cooperative, mild distress, moderate distress Heart: Regular rate Lungs: Clear, Other Abdomen: Normal bowel sounds, Soft Extremities: No clubbing, No cyanosis, Other (RLE redness, clearing, ) Skin: No significant lesion, Other (diffuse redness, clearing from marker lines made yesterday, up to thigh and down to ankle right side, blanchable this AM) Assessment and Plan Assessmemt and Plan Problems Medical Problems: (1) Cellulitis Status: Acute (2) Self-care deficit in patient living alone Status: Acute Comment Review of Relevant I have reviewed the following items arpit (where applicable) has been applied. Labs Laboratory Tests Test 02/22/19 18:55 02/22/19 19:45 Urine Collection Type Unknown Urine Color [place] Urine Clarity Clear Urine pH Urine Specific [place] 1.025 Urine Protein mg/dL (NEG-TRACE) Urine Glucose (UA) mg/dL (NEG) Urine Ketones (Stick) mg/dL (NEG) Urine Blood (NEG) Urine Nitrite (NEG) Urine Bilirubin (NEG) Urine Urobilinogen Dipstick mg/dL (0.2 mg/dL) Urine Leukocyte Esterase (NEG) Urine RBC 0 /HPF (0-2) Urine WBC 1-4 /HPF (0-4) Urine Squamous Epithelial Cells Few /LPF Urine Bacteria 0 /HPF (0-FEW) Urine Mucus Slight /LPF Urine Opiates Screen Neg (NEG) Urine Methadone Screen Neg (NEG) Urine Barbiturates Neg (NEG) Urine Phencyclidine Screen Neg (NEG) Urine Amphetamine/Methamphetamine Neg (NEG) Urine Benzodiazepines Screen Neg (NEG) Urine Cocaine Screen Neg (NEG) Urine Cannabinoids Screen Neg (NEG) Urine Ethyl Alcohol Neg (NEG) White Blood Count 5.8 x10^3/uL (4.0-11.0) Red Blood Count 3.93 x10^6/uL (4.30-5.70) Hemoglobin 14.1 g/dL (13.0-17.5) Hematocrit 39.2 % (39.0-53.0) Mean Corpuscular Volume 100 fL (79-100) Mean Corpuscular Hemoglobin 36 pg (25-35) Mean Corpuscular Hemoglobin Concent 36 g/dL (31-37) Red Cell Distribution Width 14.4 % (11.5-14.5) Platelet Count 90 x10^3/uL (140-400) Neutrophils (%) (Auto) 77 % (31-73) Lymphocytes (%) (Auto) 10 % (24-48) Monocytes (%) (Auto) 11 % (0-9) Eosinophils (%) (Auto) 1 % (0-3) Basophils (%) (Auto) 1 % (0-3) Neutrophils # (Auto) 4.5 x10^3/uL (1.8-7.7) Lymphocytes # (Auto) 0.6 x10^3/uL (1.0-4.8) Monocytes # (Auto) 0.7 x10^3/uL (0.0-1.1) Eosinophils # (Auto) 0.1 x10^3/uL (0.0-0.7) Basophils # (Auto) 0.1 x10^3/uL (0.0-0.2) Prothrombin Time 15.4 SEC (11.7-14.0) Prothromb Time International Ratio 1.3 (0.8-1.1) Activated Partial Thromboplast Time 26 SEC (24-38) D-Dimer (Edwige) 1.81 ug/mlFEU (0.00-0.50) Sodium Level 142 mmol/L (136-145) Potassium Level 3.9 mmol/L (3.5-5.1) Chloride Level 106 mmol/L (98-107) Carbon Dioxide Level 24 mmol/L (21-32) Anion Gap 12 (6-14) Blood Urea Nitrogen 25 mg/dL (8-26) Creatinine 1.4 mg/dL (0.7-1.3) Estimated GFR (Cockcroft-Gault) 50.4 BUN/Creatinine Ratio 18 (6-20) Glucose Level 99 mg/dL (70-99) Lactic Acid Level 1.9 mmol/L (0.4-2.0) Calcium Level 8.5 mg/dL (8.5-10.1) Magnesium Level 1.6 mg/dL (1.8-2.4) Total Bilirubin 5.0 mg/dL (0.2-1.0) Aspartate Amino Transf (AST/SGOT) 55 U/L (15-37) Alanine Aminotransferase (ALT/SGPT) 31 U/L (16-63) Alkaline Phosphatase 46 U/L (46-116) Creatine Kinase 317 U/L (39-308) Creatine Kinase MB (Mass) 1.1 ng/mL (0.0-3.6) Creatine Kinase MB Relative Index 0.3 % (0-4) Troponin I Quantitative 0.033 ng/mL (0.000-0.055) FI-Cyr-V-Type Natriuretic Peptide 222 pg/mL (0-124) Total Protein 6.6 g/dL (6.4-8.2) Albumin 3.1 g/dL (3.4-5.0) Albumin/Globulin Ratio 0.9 (1.0-1.7) Lipase 143 U/L (73-393) Ethyl Alcohol Level < 10 mg/dL (0-10) Microbiology 02/22/19 Blood Culture - Preliminary, Resulted NO GROWTH AFTER 1 DAY Medications Current Medications Aspirin (David Aspirin) 325 mg 1X ONCE PO Last administered on 02/22/19at 20:00; Start 02/22/19 at 19:45; Stop 02/22/19 at 19:46; Status DC Clindamycin Phosphate 50 ml @ 100 mls/hr 1X ONCE IV Last administered on 06/02at 20:16; Start 02/22/19 at 20:15; Stop 02/22/19 at 20:44; Status DC Ondansetron HCl (Zofran) 4 mg PRN Q8HRS PRN IV NAUSEA/VOMITING; Start 02/22/19 at 20:00; Stop 02/23/19 at 19:59; Status DC Fentanyl Citrate (Fentanyl 2ml Vial) 25 mcg PRN Q2HRS PRN IV PAIN; Start 02/22/19 at 20:00 Iohexol (Omnipaque 350 Mg/ml) 75 ml 1X ONCE IV Last administered on 02/23/19at 05:26; Start 02/22/19 at 22:00; Stop 02/22/19 at 22:01; Status DC Info (CONTRAST GIVEN -- Rx MONITORING) 1 each PRN DAILY PRN MC SEE COMMENTS; Start 02/22/19 at 22:00; Stop 02/23/19 at 17:45; Status DC Magnesium Sulfate 50 ml @ 25 mls/hr 1X ONCE IV Last administered on 02/23/19at 01:00; Start 02/23/19 at 00:15; Stop 02/23/19 at 02:14; Status DC Iohexol (Omnipaque 350 Mg/ml) 75 ml 1X ONCE IV ; Start 02/23/19 at 05:15; Stop 02/23/19 at 05:16; Status DC Info (CONTRAST GIVEN -- Rx MONITORING) 1 each PRN DAILY PRN MC SEE COMMENTS; Start 02/23/19 at 05:15; Stop 02/25/19 at 05:14 Clindamycin Phosphate 50 ml @ 100 mls/hr Q8HRS IV Last administered on 02/24/19at 05:09; Start 02/23/19 at 15:00; Stop 02/24/19 at 09:05; Status DC Clindamycin Phosphate 50 ml @ 100 mls/hr 1X ONCE IV Last administered on 02/23/19at 10:12; Start 02/23/19 at 10:00; Stop 02/24/19 at 09:05; Status DC Oxycodone/ Acetaminophen (Percocet 5/325) 1 tab PRN Q4HRS PRN PO PAIN; Start 02/24/19 at 09:00 Vancomycin HCl (Vanco Per Pharmacy) 1 each PRN DAILY PRN MC SEE COMMENTS; Start 02/24/19 at 09:15; Status UNV Active Scripts Active Reported No Known Medications Prior To Admisstion (Info) Each 1 Each MC DAILY Vitals/I & O Vital Sign - Last 24 Hours 02/23/19 02/23/19 02/23/19 02/23/19 11:00 15:00 19:20 20:00 Temp 97.9 97.9 98.2 97.9 97.9 98.2 Pulse 59 57 56 Resp 16 14 18 B/P (MAP) 123/61 (81) 131/64 (86) 122/38 (66) Pulse Ox 99 98 96 O2 Delivery Room Air Room Air Room Air Room Air 02/23/19 02/24/19 02/24/19 23:48 03:44 07:00 Temp 99.2 98.4 98.1 99.2 98.4 98.1 Pulse 59 53 62 Resp 18 18 16 B/P (MAP) 113/49 (70) 117/50 (72) 125/62 (83) Pulse Ox 96 96 97 O2 Delivery Room Air Room Air Room Air Intake and Output 02/23/19 02/23/19 02/24/19 15:00 23:00 07:00 Intake Total 160 ml 400 ml 150 ml Output Total 100 ml Balance 160 ml 300 ml 150 ml CLOVIS SALAZAR MD Feb 24, 2019 09:07
[2019-02-24] MEDS ORDERED: IV NORMAL SALINE 1000ML BAG 1,000 ML IV ONE (09:15)
[2019-02-24] MEDS ORDERED: TAMSULOSIN 0.4 MG CAP.ER.24H. PO ONE (09:15)
[2019-02-24] MEDS ORDERED: VANCOMYCIN PER PHARMACY MC PRN (09:15)
[2019-02-24] MEDS ORDERED: VANCOMYCIN 2 GM in IV NORMAL SALINE 500ML BAG 500 ML IV ONE (09:30)
--- NOTE | 2019-02-24 09:55 | PDOC ---
Infectious Disease Note Vital Sign Vital Signs Vital Signs Date Time Temp Pulse Resp B/P (MAP) Pulse Ox O2 Delivery O2 Flow Rate FiO2 02/24/19 07:00 98.1 62 16 125/62 (83) 97 Room Air 98.1 Labs Micro Microbiology 02/22/19 Blood Culture - Preliminary, Resulted NO GROWTH AFTER 1 DAY Objective Assessment Rt leg cellulitis Tinea infection bet toes and in groin Cirrhosis of liver Fever Hep C Plan Plan of Care Rocephine diflucan d/c clinda d/c vanc adv to quit etoh need toe nail trimming JENNIFER GUEVARA MD Feb 24, 2019 09:55
[2019-02-24 10:35] LABS: BASO % 1 % (0-3); EOS # 0.2 x10^3/uL (0.0-0.7); EOS % 7 % (0-3); HEMATOCRIT 33.4 % (39.0-53.0); LYMPH # 0.5 x10^3/uL (1.0-4.8); LYMPH % 16 % (24-48); MEAN CORPUSCULAR HEMOGLOBIN 36 pg (25-35); MEAN CORPUSCULAR HGB CONC 36 g/dL (31-37); MEAN CORPUSCULAR VOLUME 100 fL (79-100); MONO # 0.5 x10^3/uL (0.0-1.1); MONO % 15 % (0-9); NEUT % 62 % (31-73); PLATELET COUNT 80 x10^3/uL (140-400); RED BLOOD COUNT 3.34 x10^6/uL (4.30-5.70); RED CELL DISTRIBUTION WIDTH 13.9 % (11.5-14.5); WHITE BLOOD COUNT 3.2 x10^3/uL (4.0-11.0)
[2019-02-24 10:45] LABS: ALBUMIN 2.4 g/dL (3.4-5.0); ALBUMIN/GLOBULIN RATIO 0.7 (1.0-1.7); CALCIUM 7.7 mg/dL (8.5-10.1); CREATININE 1.3 mg/dL (0.7-1.3); GFR 54.9; POTASSIUM 3.7 mmol/L (3.5-5.1); TOTAL PROTEIN 5.9 g/dL (6.4-8.2)
[2019-02-24] MEDS: FLUCONAZOLE 100 MG TABLET. PO SCH (10:50)
[2019-02-24] MEDS: oxyCODONE/APAP 5/325 1 TAB TABLET PO PRN ×2 (10:51→19:14)
[2019-02-24 10:52] LABS: PROTHROMBIN TIME PATIENT 14.3 SEC (11.7-14.0)
[2019-02-24] MEDS: cefTRIAXone IV Push 1 GM VIAL. IVP SCH (10:52)
[2019-02-24 11:00] VITALS: BP 114/51
--- NOTE | 2019-02-24 11:05 | CONS ---
DATE OF CONSULTATION: 02/24/2019 REQUESTING PHYSICIAN: Dr. Martinez. REASON FOR CONSULTATION: Cellulitis. HISTORY OF PRESENT ILLNESS: This is a 69-year-old gentleman who has cirrhosis of liver, who presented with right lower extremity redness and pain. The patient had low-grade fever. The patient was given a dose of clindamycin and put on vancomycin and consult has been requested. The patient denies any nausea, vomiting, diarrhea. Denies any chest pain, shortness of breath, abdominal pain, urinary symptoms. PAST MEDICAL HISTORY: Positive for hypertension, cirrhosis of liver, hepatitis C, which has been treated. PAST SURGICAL HISTORY: The patient has had TIPS procedure done, splenomegaly and cardiomegaly. SOCIAL HISTORY: Off and on alcohol use. Denies smoking. No drug use. ALLERGIES: No known drug allergies. CURRENT MEDICATIONS: Reviewed. REVIEW OF SYSTEMS: As per HPI, all other systems reviewed are negative. PHYSICAL EXAMINATION: GENERAL: Alert, oriented gentleman, not in distress. VITAL SIGNS: Stable with T-max 99.2. HEENT: NAD. NECK: Supple, no JVP, no lymphadenopathy. LUNGS: Clear. HEART: S1, S2 regular. ABDOMEN: Benign. EXTREMITIES: No edema, cyanosis. SKIN: Unremarkable except the right leg, has distinct erythema on the right leg all the way to the groin. The patient does have tinea infection in the groin as well as between the toes, very poor hygiene with large toenails. NEUROLOGIC: The patient is alert, awake and appropriate. No focal neurologic deficit. LABORATORY DATA: White count is normal at 5.8, platelets are 90,000. BUN and creatinine is 25 and 1.4, total bilirubin is 5. ALT and AST 55 and 31. Lactic acid 1.9. Blood cultures so far negative. CT chest negative. Chest x-ray showed cardiomegaly. Lower extremity ultrasound negative. IMPRESSION: 1. Right lower extremity cellulitis, streptococcus is most likely etiologic agent. 2. Tinea infection between the toes as well as into the groin. 3. Low grade fever. 4. Cirrhosis of liver. 5. Hepatitis C, treated. 6. Mild renal insufficiency. RECOMMENDATION: Change antibiotics to IV Rocephin, also add Diflucan p.o. Supportive care. Advised to quit alcohol use. Podiatry consult to take care of the toenails and we will continue to follow. Thank you very much, Dr. Martinez, for giving me the opportunity to participate in this patient's care. JENNIFER GUEVARA MD DR: SHAWN/aaron JOB#: [id number] / [id number]
[2019-02-24 15:00] VITALS: BP 126/61
--- NOTE | 2019-02-24 17:15 | NUR ---
Discharge orders placed. Discharge instructions/medications discussed with pt. Prescription Percocet 5325 #120 given to pt. Explained Rx needs to be filled for pain control. Pt voiced understanding. Discussed pt is non weight bearing L arm and to f/u with Dr. Levin x 2 weeks. Pt voiced understanding. Walked pt out to hospital exit without complications. Pt secured in private vehicle. Addendum: 02/24/19 at 1919 by PORTER FERGUSON RN Wrong chart.
[2019-02-24 19:00] VITALS: BP 138/52
[2019-02-24] MEDS: TAMSULOSIN 0.4 MG CAP.ER.24H. PO SCH (20:13)
[2019-02-24 22:00] LABS: BILIRUBIN,URINE SMALL (NEG); CLARITY,URINE CLEAR; COLOR,URINE ORANGE; NITRITE,URINE NEGATIVE (NEG); PROTEIN,URINE NEGATIVE (NEG-TRACE)
[2019-02-24 22:09] LABS: BACTERIA,URINE 0 /HPF (0-FEW); RBC,URINE OCC /HPF (0-2); WBC,URINE OCC /HPF (0-4)
[2019-02-24 23:00] VITALS: BP 129/62
[2019-02-25 03:00] VITALS: BP 132/58
[2019-02-25 07:00] VITALS: BP 121/49
[2019-02-25] MEDS: cefTRIAXone IV Push 1 GM VIAL. IVP SCH (08:07)
[2019-02-25] MEDS: FLUCONAZOLE 100 MG TABLET. PO SCH (08:08)
[2019-02-25] MEDS: oxyCODONE/APAP 5/325 1 TAB TABLET PO PRN ×3 (08:08→21:26)
--- NOTE | 2019-02-25 09:52 | PDOC ---
Infectious Disease Note Subjective Subjective cont to have leg pain, slightly better ROS ROS no n/v/d/sob Vital Sign Vital Signs Vital Signs Date Time Temp Pulse Resp B/P (MAP) Pulse Ox O2 Delivery O2 Flow Rate FiO2 02/25/19 08:59 95 Room Air 02/25/19 07:00 97.9 70 14 121/49 (73) 97.9 Physical Exam PHYSICAL EXAM GENERAL: Alert, oriented gentleman, not in distress. VITAL SIGNS: Stable HEENT: NAD. NECK: Supple, no JVP, no lymphadenopathy. LUNGS: Clear. HEART: S1, S2 regular. ABDOMEN: Benign. EXTREMITIES: No edema, cyanosis. SKIN: Unremarkable except the right leg, has distinct erythema on the right leg all the way to the groin. The patient does have tinea infection in the groin as well as between the toes, very poor hygiene with large toenails. NEUROLOGIC: The patient is alert, awake and appropriate. No focal neurologic deficit. Labs Lab Laboratory Tests Test 02/24/19 21:30 Urine Collection Type Unknown Urine Color [place] Urine Clarity Clear Urine pH 6.0 Urine Specific [place] >=1.030 Urine Protein Negative mg/dL (NEG-TRACE) Urine Glucose (UA) Negative mg/dL (NEG) Urine Ketones (Stick) Negative mg/dL (NEG) Urine Blood Negative (NEG) Urine Nitrite Negative (NEG) Urine Bilirubin Small (NEG) Urine Urobilinogen Dipstick 4.0 mg/dL (0.2 mg/dL) Urine Leukocyte Esterase Negative (NEG) Urine RBC Occ /HPF (0-2) Urine WBC Occ /HPF (0-4) Urine Bacteria 0 /HPF (0-FEW) Urine Mucus Mod /LPF Micro Microbiology 02/22/19 Blood Culture - Preliminary, Resulted NO GROWTH AFTER 1 DAY Objective Assessment Rt leg cellulitis Tinea infection bet toes and in groin Cirrhosis of liver Fever Hep C Plan Plan of Care Rocephine diflucan adv to quit etoh need toe nail trimming JENNIFER GUEVARA MD Feb 25, 2019 09:52
[2019-02-25] MEDS: CYCLOBENZAPRINE 10 MG TABLET. PO PRN ×2 (10:58→21:26)
[2019-02-25 11:00] VITALS: BP 130/60
--- NOTE | 2019-02-25 14:50 | PDOC ---
PROGRESS NOTES Chief Complaint Chief Complaint cellulitis, RLE leg pain obesity, BMI 42 prior liver mass, with hep c, treated with harvoni, needs outpatient f/u cirrhosis with hyperbilirubin, History of Present Illness History of Present Illness rash is now worse today after looking more cleared yesterday on clindamycin, will consult ID, change to isabela, renal fxn is a concern, poss CKD 3 he complains of leg pain and cramps, start flexeril labs pending,, bili 5 yesterday, he reports orange urine for a period of time Vitals Vitals Vital Signs Date Time Temp Pulse Resp B/P (MAP) Pulse Ox O2 Delivery O2 Flow Rate FiO2 02/25/19 11:00 98.1 58 14 130/60 (83) 95 Room Air 98.1 Physical Exam Physical Exam GENERAL: Alert, oriented gentleman, not in distress. VITAL SIGNS: Stable HEENT: NAD. NECK: Supple, no JVP, no lymphadenopathy. LUNGS: Clear. HEART: S1, S2 regular. ABDOMEN: Benign. EXTREMITIES: No edema, cyanosis. SKIN: Unremarkable except the right leg, has distinct erythema on the right leg all the way to the groin. The patient does have tinea infection in the groin as well as between the toes, very poor hygiene with large toenails. NEUROLOGIC: The patient is alert, awake and appropriate. No focal neurologic deficit. General: Alert, Oriented X3, Cooperative, mild distress, moderate distress Heart: Regular rate Lungs: Clear, Other Abdomen: Normal bowel sounds, Soft Extremities: No clubbing, No cyanosis, Other (RLE redness, clearing, ) Skin: No significant lesion, Other (diffuse redness, clearing from marker lines made yesterday, up to thigh and down to ankle right side, blanchable this AM) Labs LABS Laboratory Tests Test 02/24/19 21:30 Urine Collection Type Unknown Urine Color [place] Urine Clarity Clear Urine pH 6.0 Urine Specific [place] >=1.030 Urine Protein Negative mg/dL (NEG-TRACE) Urine Glucose (UA) Negative mg/dL (NEG) Urine Ketones (Stick) Negative mg/dL (NEG) Urine Blood Negative (NEG) Urine Nitrite Negative (NEG) Urine Bilirubin Small (NEG) Urine Urobilinogen Dipstick 4.0 mg/dL (0.2 mg/dL) Urine Leukocyte Esterase Negative (NEG) Urine RBC Occ /HPF (0-2) Urine WBC Occ /HPF (0-4) Urine Bacteria 0 /HPF (0-FEW) Urine Mucus Mod /LPF Review of Systems Review of Systems leg pain, leg cramps Assessment and Plan Assessmemt and Plan Problems Medical Problems: (1) Cellulitis Status: Acute (2) Self-care deficit in patient living alone Status: Acute Comment Review of Relevant I have reviewed the following items arpit (where applicable) has been applied. Labs Laboratory Tests Test 02/24/19 09:40 02/24/19 09:50 02/24/19 21:30 White Blood Count 3.2 x10^3/uL (4.0-11.0) Red Blood Count 3.34 x10^6/uL (4.30-5.70) Hemoglobin 12.0 g/dL (13.0-17.5) Hematocrit 33.4 % (39.0-53.0) Mean Corpuscular Volume 100 fL (79-100) Mean Corpuscular Hemoglobin 36 pg (25-35) Mean Corpuscular Hemoglobin Concent 36 g/dL (31-37) Red Cell Distribution Width 13.9 % (11.5-14.5) Platelet Count 80 x10^3/uL (140-400) Neutrophils (%) (Auto) 62 % (31-73) Lymphocytes (%) (Auto) 16 % (24-48) Monocytes (%) (Auto) 15 % (0-9) Eosinophils (%) (Auto) 7 % (0-3) Basophils (%) (Auto) 1 % (0-3) Neutrophils # (Auto) 2.0 x10^3/uL (1.8-7.7) Lymphocytes # (Auto) 0.5 x10^3/uL (1.0-4.8) Monocytes # (Auto) 0.5 x10^3/uL (0.0-1.1) Eosinophils # (Auto) 0.2 x10^3/uL (0.0-0.7) Basophils # (Auto) 0.0 x10^3/uL (0.0-0.2) Sodium Level 142 mmol/L (136-145) Potassium Level 3.7 mmol/L (3.5-5.1) Chloride Level 107 mmol/L (98-107) Carbon Dioxide Level 27 mmol/L (21-32) Anion Gap 8 (6-14) Blood Urea Nitrogen 19 mg/dL (8-26) Creatinine 1.3 mg/dL (0.7-1.3) Estimated GFR (Cockcroft-Gault) 54.9 BUN/Creatinine Ratio 15 (6-20) Glucose Level 171 mg/dL (70-99) Calcium Level 7.7 mg/dL (8.5-10.1) Total Bilirubin 3.0 mg/dL (0.2-1.0) Aspartate Amino Transf (AST/SGOT) 32 U/L (15-37) Alanine Aminotransferase (ALT/SGPT) 25 U/L (16-63) Alkaline Phosphatase 48 U/L (46-116) Total Protein 5.9 g/dL (6.4-8.2) Albumin 2.4 g/dL (3.4-5.0) Albumin/Globulin Ratio 0.7 (1.0-1.7) Prothrombin Time 14.3 SEC (11.7-14.0) Prothromb Time International Ratio 1.1 (0.8-1.1) Urine Collection Type Unknown Urine Color [place] Urine Clarity Clear Urine pH 6.0 Urine Specific [place] >=1.030 Urine Protein Negative mg/dL (NEG-TRACE) Urine Glucose (UA) Negative mg/dL (NEG) Urine Ketones (Stick) Negative mg/dL (NEG) Urine Blood Negative (NEG) Urine Nitrite Negative (NEG) Urine Bilirubin Small (NEG) Urine Urobilinogen Dipstick 4.0 mg/dL (0.2 mg/dL) Urine Leukocyte Esterase Negative (NEG) Urine RBC Occ /HPF (0-2) Urine WBC Occ /HPF (0-4) Urine Bacteria 0 /HPF (0-FEW) Urine Mucus Mod /LPF Laboratory Tests Test 02/24/19 21:30 Urine Collection Type Unknown Urine Color [place] Urine Clarity Clear Urine pH 6.0 Urine Specific [place] >=1.030 Urine Protein Negative mg/dL (NEG-TRACE) Urine Glucose (UA) Negative mg/dL (NEG) Urine Ketones (Stick) Negative mg/dL (NEG) Urine Blood Negative (NEG) Urine Nitrite Negative (NEG) Urine Bilirubin Small (NEG) Urine Urobilinogen Dipstick 4.0 mg/dL (0.2 mg/dL) Urine Leukocyte Esterase Negative (NEG) Urine RBC Occ /HPF (0-2) Urine WBC Occ /HPF (0-4) Urine Bacteria 0 /HPF (0-FEW) Urine Mucus Mod /LPF Microbiology 02/22/19 Blood Culture - Preliminary, Resulted NO GROWTH AFTER 2 DAYS Medications Current Medications Aspirin (David Aspirin) 325 mg 1X ONCE PO Last administered on 02/22/19at 20:00; Start 02/22/19 at 19:45; Stop 02/22/19 at 19:46; Status DC Clindamycin Phosphate 50 ml @ 100 mls/hr 1X ONCE IV Last administered on 02/22/19at 20:16; Start 02/22/19 at 20:15; Stop 02/22/19 at 20:44; Status DC Ondansetron HCl (Zofran) 4 mg PRN Q8HRS PRN IV NAUSEA/VOMITING; Start 02/22/19 at 20:00; Stop 02/23/19 at 19:59; Status DC Fentanyl Citrate (Fentanyl 2ml Vial) 25 mcg PRN Q2HRS PRN IV PAIN; Start 02/22/19 at 20:00 Iohexol (Omnipaque 350 Mg/ml) 75 ml 1X ONCE IV Last administered on 02/23/19at 05:26; Start 02/22/19 at 22:00; Stop 02/22/19 at 22:01; Status DC Info (CONTRAST GIVEN -- Rx MONITORING) 1 each PRN DAILY PRN MC SEE COMMENTS; Start 02/22/19 at 22:00; Stop 02/23/19 at 17:45; Status DC Magnesium Sulfate 50 ml @ 25 mls/hr 1X ONCE IV Last administered on 02/23/19at 01:00; Start 02/23/19 at 00:15; Stop 02/23/19 at 02:14; Status DC Iohexol (Omnipaque 350 Mg/ml) 75 ml 1X ONCE IV ; Start 02/23/19 at 05:15; Stop 02/23/19 at 05:16; Status DC Info (CONTRAST GIVEN -- Rx MONITORING) 1 each PRN DAILY PRN MC SEE COMMENTS; Start 02/23/19 at 05:15; Stop 02/25/19 at 05:14; Status DC Clindamycin Phosphate 50 ml @ 100 mls/hr Q8HRS IV Last administered on 02/24/19at 05:09; Start 02/23/19 at 15:00; Stop 02/24/19 at 09:05; Status DC Clindamycin Phosphate 50 ml @ 100 mls/hr 1X ONCE IV Last administered on 02/23/19 10:12; Start 02/23/19 at 10:00; Stop 02/24/19 at 09:05; Status DC Oxycodone/ Acetaminophen (Percocet 5/325) 1 tab PRN Q4HRS PRN PO PAIN Last administered on 02/25/19 08:09; Start 02/24/19 at 09:00 Vancomycin HCl (Vanco Per Pharmacy) 1 each PRN DAILY PRN MC SEE COMMENTS; Start 02/24/19 at 09:15; Stop 02/24/19 at 09:58; Status DC Tamsulosin HCl (Flomax) 0.4 mg 1X ONCE PO Last administered on 02/24/19 10:52; Start 02/24/19 at 09:15; Stop 02/24/19 at 09:16; Status DC Tamsulosin HCl (Flomax) 0.4 mg QHS PO Last administered on 02/24/19 20:13; Start 02/24/19 at 21:00 Sodium Chloride 1,000 ml @ 100 mls/hr 1X ONCE IV Last administered on 02/24/19 10:52; Start 02/24/19 at 09:15; Stop 02/24/19 at 19:14; Status DC Cyclobenzaprine HCl (Flexeril) 10 mg PRN Q6HRS PRN PO MUSCLE SPASMS Last administered on 02/25/19 10:58; Start 02/24/19 at 09:15 Vancomycin HCl 2 gm/Sodium Chloride 500 ml @ 250 mls/hr ONCE ONCE IV ; Start 02/24/19 at 09:30; Stop 02/24/19 at 11:10; Status DC Ceftriaxone Sodium (Rocephin) 1 gm Q24H IVP Last administered on 02/25/19 08:0 9; Start 02/24/19 at 10:30 Fluconazole (Diflucan) 200 mg DAILY PO Last administered on 02/25/19 08:09; Start 02/24/19 at 10:30 Active Scripts Active Reported No Known Medications Prior To Admisstion (Info) Each 1 Each DAILY Vitals/I & O Vital Sign - Last 24 Hours 02/24/19 02/24/19 02/24/19 02/24/19 15:00 19:00 19:14 20:15 Temp 98.1 98.1 98.1 98.1 Pulse 62 63 Resp 16 18 16 B/P (MAP) 126/61 (82) 138/52 (80) Pulse Ox 97 94 O2 Delivery Room Air Room Air Room Air Room Air 02/24/19 02/25/19 02/25/19 02/25/19 23:00 01:45 03:00 07:00 Temp 98.1 98.0 97.9 98.1 98.0 97.9 Pulse 54 53 70 Resp 18 16 18 14 B/P (MAP) 129/62 (84) 132/58 (82) 121/49 (73) Pulse Ox 95 97 95 O2 Delivery Room Air Room Air Room Air Room Air 02/25/19 02/25/19 02/25/19 02/25/19 07:24 08:09 08:59 11:00 Temp 98.1 98.1 Pulse 58 Resp 14 B/P (MAP) 130/60 (83) Pulse Ox 95 95 95 O2 Delivery Room Air Room Air Room Air Room Air Intake and Output 02/24/19 02/24/19 02/25/19 15:00 23:00 07:00 Intake Total 360 ml 250 ml 1350 ml Balance 360 ml 250 ml 1350 ml CLOVIS SALAZAR MD Feb 25, 2019 14:50
[2019-02-25 15:00] VITALS: BP 125/61
[2019-02-25 19:00] VITALS: BP 114/44
[2019-02-25] MEDS: TAMSULOSIN 0.4 MG CAP.ER.24H. PO SCH (21:26)
[2019-02-25 23:00] VITALS: BP 134/62
[2019-02-26 03:00] VITALS: BP 123/59
[2019-02-26 07:00] VITALS: BP 139/45
[2019-02-26] MEDS: cefTRIAXone IV Push 1 GM VIAL. IVP SCH (07:57)
[2019-02-26] MEDS: CYCLOBENZAPRINE 10 MG TABLET. PO PRN ×2 (07:59→15:03)
[2019-02-26] MEDS: oxyCODONE/APAP 5/325 1 TAB TABLET PO PRN ×2 (08:00→15:03)
[2019-02-26] MEDS: FLUCONAZOLE 100 MG TABLET. PO SCH (08:00)
--- NOTE | 2019-02-26 09:44 | PDOC ---
Infectious Disease Note Subjective Subjective cont to have leg pain, much better ROS ROS no n/v/d/sob/fever Vital Sign Vital Signs Vital Signs Date Time Temp Pulse Resp B/P (MAP) Pulse Ox O2 Delivery O2 Flow Rate FiO2 02/26/19 08:45 94 Room Air 02/26/19 07:00 98.2 61 18 139/45 (76) 98.2 Physical Exam PHYSICAL EXAM GENERAL: Alert, oriented gentleman, not in distress. VITAL SIGNS: Stable HEENT: NAD. NECK: Supple, no JVP, no lymphadenopathy. LUNGS: Clear. HEART: S1, S2 regular. ABDOMEN: Benign. EXTREMITIES: No edema, cyanosis. SKIN: Unremarkable except the right leg, has distinct erythema on the right leg all the way to the groin. The patient does have tinea infection in the groin as well as between the toes, very poor hygiene with large toenails. NEUROLOGIC: The patient is alert, awake and appropriate. No focal neurologic deficit. Labs Micro Microbiology 02/22/19 Blood Culture - Preliminary, Resulted NO GROWTH AFTER 1 DAY Objective Assessment Rt leg cellulitis Tinea infection bet toes and in groin Cirrhosis of liver Fever Hep C Plan Plan of Care Rocephine,, soon to d/c on po keflex and diflucan diflucan adv to quit etoh need toe nail trimming JENNIFER GUEVARA MD Feb 26, 2019 09:44
[2019-02-26 10:55] LABS: BASO % 1 % (0-3); EOS # 0.2 x10^3/uL (0.0-0.7); EOS % 8 % (0-3); HEMATOCRIT 32.6 % (39.0-53.0); HEMOGLOBIN 11.6 g/dL (13.0-17.5); LYMPH # 0.6 x10^3/uL (1.0-4.8); LYMPH % 19 % (24-48); MEAN CORPUSCULAR HEMOGLOBIN 36 pg (25-35); MEAN CORPUSCULAR HGB CONC 36 g/dL (31-37); MEAN CORPUSCULAR VOLUME 100 fL (79-100); MONO # 0.4 x10^3/uL (0.0-1.1); MONO % 14 % (0-9); NEUT # 1.9 x10^3/uL (1.8-7.7); NEUT % 58 % (31-73); PLATELET COUNT 98 x10^3/uL (140-400); RED BLOOD COUNT 3.25 x10^6/uL (4.30-5.70); WHITE BLOOD COUNT 3.2 x10^3/uL (4.0-11.0)
[2019-02-26 11:00] VITALS: BP 124/49
[2019-02-26 11:08] LABS: ALBUMIN 2.4 g/dL (3.4-5.0); ALBUMIN/GLOBULIN RATIO 0.7 (1.0-1.7); CALCIUM 7.7 mg/dL (8.5-10.1); CREATININE 1.1 mg/dL (0.7-1.3); GFR 66.6; POTASSIUM 4.1 mmol/L (3.5-5.1); TOTAL BILIRUBIN 1.5 mg/dL (0.2-1.0)
--- NOTE | 2019-02-26 12:32 | PDOC ---
PROGRESS NOTES Chief Complaint Chief Complaint cellulitis, RLE leg pain obesity, BMI 42 prior liver mass, with hep c, treated with harvoni, needs outpatient f/u cirrhosis with hyperbilirubin, History of Present Illness History of Present Illness rash is now worse today after looking more cleared yesterday on clindamycin, will consult ID, change to isabela, renal fxn is a concern, poss CKD 3 he complains of leg pain and cramps, start flexeril labs pending,, bili 5 yesterday, he reports orange urine for a period of time Vitals Vitals Vital Signs Date Time Temp Pulse Resp B/P (MAP) Pulse Ox O2 Delivery O2 Flow Rate FiO2 02/26/19 11:00 98.7 52 18 124/49 (74) 98 Room Air 98.7 Physical Exam Physical Exam GENERAL: Alert, oriented gentleman, not in distress. VITAL SIGNS: Stable HEENT: NAD. NECK: Supple, no JVP, no lymphadenopathy. LUNGS: Clear. HEART: S1, S2 regular. ABDOMEN: Benign. EXTREMITIES: No edema, cyanosis. SKIN: Unremarkable except the right leg, has distinct erythema on the right leg all the way to the groin. The patient does have tinea infection in the groin as well as between the toes, very poor hygiene with large toenails. NEUROLOGIC: The patient is alert, awake and appropriate. No focal neurologic deficit. General: Alert, Oriented X3, Cooperative, mild distress, moderate distress Heart: Regular rate Lungs: Clear, Other Abdomen: Normal bowel sounds, Soft Extremities: No clubbing, No cyanosis, Other (RLE redness, clearing, ) Skin: No significant lesion, Other (diffuse redness, clearing from marker lines made yesterday, up to thigh and down to ankle right side, blanchable this AM) Labs LABS Laboratory Tests Test 02/26/19 10:45 White Blood Count 3.2 x10^3/uL (4.0-11.0) Red Blood Count 3.25 x10^6/uL (4.30-5.70) Hemoglobin 11.6 g/dL (13.0-17.5) Hematocrit 32.6 % (39.0-53.0) Mean Corpuscular Volume 100 fL (79-100) Mean Corpuscular Hemoglobin 36 pg (25-35) Mean Corpuscular Hemoglobin Concent 36 g/dL (31-37) Red Cell Distribution Width 14.0 % (11.5-14.5) Platelet Count 98 x10^3/uL (140-400) Neutrophils (%) (Auto) 58 % (31-73) Lymphocytes (%) (Auto) 19 % (24-48) Monocytes (%) (Auto) 14 % (0-9) Eosinophils (%) (Auto) 8 % (0-3) Basophils (%) (Auto) 1 % (0-3) Neutrophils # (Auto) 1.9 x10^3/uL (1.8-7.7) Lymphocytes # (Auto) 0.6 x10^3/uL (1.0-4.8) Monocytes # (Auto) 0.4 x10^3/uL (0.0-1.1) Eosinophils # (Auto) 0.2 x10^3/uL (0.0-0.7) Basophils # (Auto) 0.0 x10^3/uL (0.0-0.2) Sodium Level 139 mmol/L (136-145) Potassium Level 4.1 mmol/L (3.5-5.1) Chloride Level 106 mmol/L (98-107) Carbon Dioxide Level 28 mmol/L (21-32) Anion Gap 5 (6-14) Blood Urea Nitrogen 16 mg/dL (8-26) Creatinine 1.1 mg/dL (0.7-1.3) Estimated GFR (Cockcroft-Gault) 66.6 BUN/Creatinine Ratio 15 (6-20) Glucose Level 125 mg/dL (70-99) Calcium Level 7.7 mg/dL (8.5-10.1) Total Bilirubin 1.5 mg/dL (0.2-1.0) Aspartate Amino Transf (AST/SGOT) 26 U/L (15-37) Alanine Aminotransferase (ALT/SGPT) 21 U/L (16-63) Alkaline Phosphatase 57 U/L (46-116) Total Protein 6.0 g/dL (6.4-8.2) Albumin 2.4 g/dL (3.4-5.0) Albumin/Globulin Ratio 0.7 (1.0-1.7) Assessment and Plan Assessmemt and Plan Problems Medical Problems: (1) Cellulitis Status: Acute (2) Self-care deficit in patient living alone Status: Acute Comment Review of Relevant I have reviewed the following items arpit (where applicable) has been applied. Labs Laboratory Tests Test 02/24/19 21:30 02/26/19 10:45 Urine Collection Type Unknown Urine Color [place] Urine Clarity Clear Urine pH 6.0 Urine Specific [place] >=1.030 Urine Protein Negative mg/dL (NEG-TRACE) Urine Glucose (UA) Negative mg/dL (NEG) Urine Ketones (Stick) Negative mg/dL (NEG) Urine Blood Negative (NEG) Urine Nitrite Negative (NEG) Urine Bilirubin Small (NEG) Urine Urobilinogen Dipstick 4.0 mg/dL (0.2 mg/dL) Urine Leukocyte Esterase Negative (NEG) Urine RBC Occ /HPF (0-2) Urine WBC Occ /HPF (0-4) Urine Bacteria 0 /HPF (0-FEW) Urine Mucus Mod /LPF White Blood Count 3.2 x10^3/uL (4.0-11.0) Red Blood Count 3.25 x10^6/uL (4.30-5.70) Hemoglobin 11.6 g/dL (13.0-17.5) Hematocrit 32.6 % (39.0-53.0) Mean Corpuscular Volume 100 fL (79-100) Mean Corpuscular Hemoglobin 36 pg (25-35) Mean Corpuscular Hemoglobin Concent 36 g/dL (31-37) Red Cell Distribution Width 14.0 % (11.5-14.5) Platelet Count 98 x10^3/uL (140-400) Neutrophils (%) (Auto) 58 % (31-73) Lymphocytes (%) (Auto) 19 % (24-48) Monocytes (%) (Auto) 14 % (0-9) Eosinophils (%) (Auto) 8 % (0-3) Basophils (%) (Auto) 1 % (0-3) Neutrophils # (Auto) 1.9 x10^3/uL (1.8-7.7) Lymphocytes # (Auto) 0.6 x10^3/uL (1.0-4.8) Monocytes # (Auto) 0.4 x10^3/uL (0.0-1.1) Eosinophils # (Auto) 0.2 x10^3/uL (0.0-0.7) Basophils # (Auto) 0.0 x10^3/uL (0.0-0.2) Sodium Level 139 mmol/L (136-145) Potassium Level 4.1 mmol/L (3.5-5.1) Chloride Level 106 mmol/L (98-107) Carbon Dioxide Level 28 mmol/L (21-32) Anion Gap 5 (6-14) Blood Urea Nitrogen 16 mg/dL (8-26) Creatinine 1.1 mg/dL (0.7-1.3) Estimated GFR (Cockcroft-Gault) 66.6 BUN/Creatinine Ratio 15 (6-20) Glucose Level 125 mg/dL (70-99) Calcium Level 7.7 mg/dL (8.5-10.1) Total Bilirubin 1.5 mg/dL (0.2-1.0) Aspartate Amino Transf (AST/SGOT) 26 U/L (15-37) Alanine Aminotransferase (ALT/SGPT) 21 U/L (16-63) Alkaline Phosphatase 57 U/L (46-116) Total Protein 6.0 g/dL (6.4-8.2) Albumin 2.4 g/dL (3.4-5.0) Albumin/Globulin Ratio 0.7 (1.0-1.7) Laboratory Tests Test 02/26/19 10:45 White Blood Count 3.2 x10^3/uL (4.0-11.0) Red Blood Count 3.25 x10^6/uL (4.30-5.70) Hemoglobin 11.6 g/dL (13.0-17.5) Hematocrit 32.6 % (39.0-53.0) Mean Corpuscular Volume 100 fL (79-100) Mean Corpuscular Hemoglobin 36 pg (25-35) Mean Corpuscular Hemoglobin Concent 36 g/dL (31-37) Red Cell Distribution Width 14.0 % (11.5-14.5) Platelet Count 98 x10^3/uL (140-400) Neutrophils (%) (Auto) 58 % (31-73) Lymphocytes (%) (Auto) 19 % (24-48) Monocytes (%) (Auto) 14 % (0-9) Eosinophils (%) (Auto) 8 % (0-3) Basophils (%) (Auto) 1 % (0-3) Neutrophils # (Auto) 1.9 x10^3/uL (1.8-7.7) Lymphocytes # (Auto) 0.6 x10^3/uL (1.0-4.8) Monocytes # (Auto) 0.4 x10^3/uL (0.0-1.1) Eosinophils # (Auto) 0.2 x10^3/uL (0.0-0.7) Basophils # (Auto) 0.0 x10^3/uL (0.0-0.2) Sodium Level 139 mmol/L (136-145) Potassium Level 4.1 mmol/L (3.5-5.1) Chloride Level 106 mmol/L (98-107) Carbon Dioxide Level 28 mmol/L (21-32) Anion Gap 5 (6-14) Blood Urea Nitrogen 16 mg/dL (8-26) Creatinine 1.1 mg/dL (0.7-1.3) Estimated GFR (Cockcroft-Gault) 66.6 BUN/Creatinine Ratio 15 (6-20) Glucose Level 125 mg/dL (70-99) Calcium Level 7.7 mg/dL (8.5-10.1) Total Bilirubin 1.5 mg/dL (0.2-1.0) Aspartate Amino Transf (AST/SGOT) 26 U/L (15-37) Alanine Aminotransferase (ALT/SGPT) 21 U/L (16-63) Alkaline Phosphatase 57 U/L (46-116) Total Protein 6.0 g/dL (6.4-8.2) Albumin 2.4 g/dL (3.4-5.0) Albumin/Globulin Ratio 0.7 (1.0-1.7) Microbiology 02/22/19 Blood Culture - Preliminary, Resulted NO GROWTH AFTER 3 DAYS Medications Current Medications Aspirin (David Aspirin) 325 mg 1X ONCE PO Last administered on 02/22/19at 20:00; Start 02/22/19 at 19:45; Stop 02/22/19 at 19:46; Status DC Clindamycin Phosphate 50 ml @ 100 mls/hr 1X ONCE IV Last administered on 02/22/19at 20:16; Start 02/22/19 at 20:15; Stop 02/22/19 at 20:44; Status DC Ondansetron HCl (Zofran) 4 mg PRN Q8HRS PRN IV NAUSEA/VOMITING; Start 02/22/19 at 20:00; Stop 02/23/19 at 19:59; Status DC Fentanyl Citrate (Fentanyl 2ml Vial) 25 mcg PRN Q2HRS PRN IV PAIN; Start 02/22/19 at 20:00 Iohexol (Omnipaque 350 Mg/ml) 75 ml 1X ONCE IV Last administered on 02/23/19at 05:26; Start 02/22/19 at 22:00; Stop 02/22/19 at 22:01; Status DC Info (CONTRAST GIVEN -- Rx MONITORING) 1 each PRN DAILY PRN MC SEE COMMENTS; Start 02/22/19 at 22:00; Stop 02/23/19 at 17:45; Status DC Magnesium Sulfate 50 ml @ 25 mls/hr 1X ONCE IV Last administered on 02/23/19at 01:00; Start 02/23/19 at 00:15; Stop 02/23/19 at 02:14; Status DC Iohexol (Omnipaque 350 Mg/ml) 75 ml 1X ONCE IV ; Start 02/23/19 at 05:15; Stop 02/23/19 at 05:16; Status DC Info (CONTRAST GIVEN -- Rx MONITORING) 1 each PRN DAILY PRN MC SEE COMMENTS; Start 02/23/19 at 05:15; Stop 02/25/19 at 05:14; Status DC Clindamycin Phosphate 50 ml @ 100 mls/hr Q8HRS IV Last administered on 02/24/19at 05:09; Start 02/23/19 at 15:00; Stop 02/24/19 at 09:05; Status DC Clindamycin Phosphate 50 ml @ 100 mls/hr 1X ONCE IV Last administered on 02/23/19at 10:12; Start 02/23/19 at 10:00; Stop 02/24/19 at 09:05; Status DC Oxycodone/ Acetaminophen (Percocet 5/325) 1 tab PRN Q4HRS PRN PO PAIN Last administered on 02/26/19at 08:01; Start 02/24/19 at 09:00 Vancomycin HCl (Vanco Per Pharmacy) 1 each PRN DAILY PRN MC SEE COMMENTS; Start 02/24/19 at 09:15; Stop 02/24/19 at 09:58; Status DC Tamsulosin HCl (Flomax) 0.4 mg 1X ONCE PO Last administered on 02/24/19 10:52; Start 02/24/19 at 09:15; Stop 02/24/19 at 09:16; Status DC Tamsulosin HCl (Flomax) 0.4 mg QHS PO Last administered on 02/25/19 21:27; Start 02/24/19 at 21:00 Sodium Chloride 1,000 ml @ 100 mls/hr 1X ONCE IV Last administered on 02/24/19at 10:52; Start 02/24/19 at 09:15; Stop 02/24/19 at 19:14; Status DC Cyclobenzaprine HCl (Flexeril) 10 mg PRN Q6HRS PRN PO MUSCLE SPASMS Last administered on 02/26/19 08:01; Start 02/24/19 at 09:15 Vancomycin HCl 2 gm/Sodium Chloride 500 ml @ 250 mls/hr ONCE ONCE IV ; Start 02/24/19 at 09:30; Stop 02/24/19 at 11:10; Status DC Ceftriaxone Sodium (Rocephin) 1 gm Q24H IVP Last administered on 02/26/19 08:01; Start 02/24/19 at 10:30 Fluconazole (Diflucan) 200 mg DAILY PO Last administered on 02/26/19 08:01; Start 02/24/19 at 10:30 Active Scripts Active Reported No Known Medications Prior To Admisstion (Info) Each 1 Each DAILY Vitals/I & O Vital Sign - Last 24 Hours 02/25/19 02/25/19 02/25/19 02/25/19 15:00 16:55 17:46 19:00 Temp 97.9 98.4 97.9 98.4 Pulse 64 54 Resp 16 18 B/P (MAP) 125/61 (82) 114/44 (67) Pulse Ox 98 98 98 94 O2 Delivery Room Air Room Air Room Air Room Air 02/25/19 02/25/19 02/25/19 02/26/19 20:00 21:27 23:00 02:31 Temp 98.1 98.1 Pulse 54 Resp 18 18 16 B/P (MAP) 134/62 (86) Pulse Ox 94 O2 Delivery Room Air Room Air Room Air Room Air 02/26/19 02/26/19 02/26/19/15/19 03:00 07:00 07:32 08:01 Temp 98.9 98.2 98.9 98.2 Pulse 58 61 Resp 18 18 B/P (MAP) 123/59 (80) 139/45 (76) Pulse Ox 94 96 94 O2 Delivery Room Air Room Air Room Air Room Air 02/26/19 02/26/19 08:45 11:00 Temp 98.7 98.7 Pulse 52 Resp 18 B/P (MAP) 124/49 (74) Pulse Ox 94 98 O2 Delivery Room Air Room Air Intake and Output 02/25/19 02/25/19 02/26/19 14:59 22:59 06:59 Intake Total 220 ml 120 ml Output Total 375 ml Balance 220 ml -375 ml 120 ml CLOVIS SALAZAR MD Feb 26, 2019 12:32
--- NOTE | 2019-02-26 12:59 | NUR ---
SS following up with discharge planning. Pt is currently on room air. No discharge needs noted at this time. SS will continue to follow for discharge planning.
[2019-02-26 15:00] VITALS: BP 113/50
[2019-02-26 19:30] VITALS: BP 138/68
[2019-02-26] MEDS: TAMSULOSIN 0.4 MG CAP.ER.24H. PO SCH (20:44)
[2019-02-26 23:49] VITALS: BP 124/55
[2019-02-27 03:48] VITALS: BP 128/52
[2019-02-27 07:00] VITALS: BP 129/52
[2019-02-27] MEDS: oxyCODONE/APAP 5/325 1 TAB TABLET PO PRN ×2 (07:29→13:34)
[2019-02-27] MEDS ORDERED: TAMS0.4C97 PO (07:55)
[2019-02-27] MEDS ORDERED: Fluconazole PO (07:55)
[2019-02-27] MEDS ORDERED: CEPH-264 PO (07:55)
[2019-02-27] MEDS ORDERED: DOCU-109 PO (07:58)
[2019-02-27] MEDS ORDERED: OXYC1TAB15 PO (07:58)
--- NOTE | 2019-02-27 08:02 | PDOC3 ---
Discharge Summary Visit Information Date of Admission: Feb 22, 2019 Date of Discharge: Feb 27, 2019 Final Diagnosis cellulitis, RLE leg pain obesity, BMI 42 Hx hep c, treated with harvoni, cirrhosis liver, hypomag moderate malnutrition anxiety, he describes himself as a hoarder Problems Medical Problems: (1) Cellulitis Status: Acute (2) Self-care deficit in patient living alone Status: Acute Brief Hospital Course Allergies Allergies Coded Allergies Type Severity Reaction Last Updated Verified No Known Drug Allergies 10/06/15 No Vital Signs Vital Signs Date Time Temp Pulse Resp B/P (MAP) Pulse Ox O2 Delivery O2 Flow Rate FiO2 02/27/19 07:31 Room Air 02/27/19 07:00 99.3 59 18 129/52 (77) 96 99.3 Lab Results Laboratory Tests Test 02/26/19 10:45 White Blood Count 3.2 x10^3/uL (4.0-11.0) Red Blood Count 3.25 x10^6/uL (4.30-5.70) Hemoglobin 11.6 g/dL (13.0-17.5) Hematocrit 32.6 % (39.0-53.0) Mean Corpuscular Volume 100 fL (79-100) Mean Corpuscular Hemoglobin 36 pg (25-35) Mean Corpuscular Hemoglobin Concent 36 g/dL (31-37) Red Cell Distribution Width 14.0 % (11.5-14.5) Platelet Count 98 x10^3/uL (140-400) Neutrophils (%) (Auto) 58 % (31-73) Lymphocytes (%) (Auto) 19 % (24-48) Monocytes (%) (Auto) 14 % (0-9) Eosinophils (%) (Auto) 8 % (0-3) Basophils (%) (Auto) 1 % (0-3) Neutrophils # (Auto) 1.9 x10^3/uL (1.8-7.7) Lymphocytes # (Auto) 0.6 x10^3/uL (1.0-4.8) Monocytes # (Auto) 0.4 x10^3/uL (0.0-1.1) Eosinophils # (Auto) 0.2 x10^3/uL (0.0-0.7) Basophils # (Auto) 0.0 x10^3/uL (0.0-0.2) Sodium Level 139 mmol/L (136-145) Potassium Level 4.1 mmol/L (3.5-5.1) Chloride Level 106 mmol/L (98-107) Carbon Dioxide Level 28 mmol/L (21-32) Anion Gap 5 (6-14) Blood Urea Nitrogen 16 mg/dL (8-26) Creatinine 1.1 mg/dL (0.7-1.3) Estimated GFR (Cockcroft-Gault) 66.6 BUN/Creatinine Ratio 15 (6-20) Glucose Level 125 mg/dL (70-99) Calcium Level 7.7 mg/dL (8.5-10.1) Total Bilirubin 1.5 mg/dL (0.2-1.0) Aspartate Amino Transf (AST/SGOT) 26 U/L (15-37) Alanine Aminotransferase (ALT/SGPT) 21 U/L (16-63) Alkaline Phosphatase 57 U/L (46-116) Total Protein 6.0 g/dL (6.4-8.2) Albumin 2.4 g/dL (3.4-5.0) Albumin/Globulin Ratio 0.7 (1.0-1.7) Laboratory Tests Test 02/26/19 10:45 White Blood Count 3.2 x10^3/uL (4.0-11.0) Red Blood Count 3.25 x10^6/uL (4.30-5.70) Hemoglobin 11.6 g/dL (13.0-17.5) Hematocrit 32.6 % (39.0-53.0) Mean Corpuscular Volume 100 fL (79-100) Mean Corpuscular Hemoglobin 36 pg (25-35) Mean Corpuscular Hemoglobin Concent 36 g/dL (31-37) Red Cell Distribution Width 14.0 % (11.5-14.5) Platelet Count 98 x10^3/uL (140-400) Neutrophils (%) (Auto) 58 % (31-73) Lymphocytes (%) (Auto) 19 % (24-48) Monocytes (%) (Auto) 14 % (0-9) Eosinophils (%) (Auto) 8 % (0-3) Basophils (%) (Auto) 1 % (0-3) Neutrophils # (Auto) 1.9 x10^3/uL (1.8-7.7) Lymphocytes # (Auto) 0.6 x10^3/uL (1.0-4.8) Monocytes # (Auto) 0.4 x10^3/uL (0.0-1.1) Eosinophils # (Auto) 0.2 x10^3/uL (0.0-0.7) Basophils # (Auto) 0.0 x10^3/uL (0.0-0.2) Sodium Level 139 mmol/L (136-145) Potassium Level 4.1 mmol/L (3.5-5.1) Chloride Level 106 mmol/L (98-107) Carbon Dioxide Level 28 mmol/L (21-32) Anion Gap 5 (6-14) Blood Urea Nitrogen 16 mg/dL (8-26) Creatinine 1.1 mg/dL (0.7-1.3) Estimated GFR (Cockcroft-Gault) 66.6 BUN/Creatinine Ratio 15 (6-20) Glucose Level 125 mg/dL (70-99) Calcium Level 7.7 mg/dL (8.5-10.1) Total Bilirubin 1.5 mg/dL (0.2-1.0) Aspartate Amino Transf (AST/SGOT) 26 U/L (15-37) Alanine Aminotransferase (ALT/SGPT) 21 U/L (16-63) Alkaline Phosphatase 57 U/L (46-116) Total Protein 6.0 g/dL (6.4-8.2) Albumin 2.4 g/dL (3.4-5.0) Albumin/Globulin Ratio 0.7 (1.0-1.7) Brief Hospital Course Mr. Herman is a 69 old male, admit with cellulitis to RLE, started on clinda and was better at 12 hours, then markedly worse the next day, Vanc given, ID consult, changed to rocephin andadded fluconazole, deep beefy cellulitis, took days to clear, advised to never drink a drop of EtOH again cirrhosis liver Discharge Information Condition at Discharge: Improved Follow Up: Weeks Disposition/Orders: D/C to Home Scheduled Cephalexin (Keflex) 500 Mg Capsule, 1 CAP PO TID for cellulitis, #21 Prescribed by: CLOVIS SALAZAR on 02/27/19 0755 Info (No Known Medications Prior To Admisstion) Each, 1 EACH MC DAILY for none, (Reported) Entered as Reported by: Keren Gardiner on 02/23/19733 Last Action: New Order on 02/23/19733 by Keren Gardiner Tamsulosin Hcl (Flomax) 0.4 Mg Cap.er.24h, 0.4 MG PO QHS for prostate, #30 Ref 2 Prescribed by: CLOVIS SALAZAR on 02/27/19754 [Fluconazole] 100 MG TABLET, 200 MG PO DAILY for infection, #7 Prescribed by: CLOVIS SALAZAR on 02/27/19754 Scheduled PRN Docusate Sodium (Colace) 100 Mg Capsule, 1 CAP PO BID PRN for CONSTIPATION, #30 Prescribed by: CLOVIS SALAZAR on 02/27/19757 Oxycodone/Apap 5-325 (Percocet 5-325 Mg Tablet ) 1 Each Tablet, 1 TAB PO PRN Q4HRS PRN for PAIN, #20 Prescribed by: CLOVIS SALAZAR on 02/27/19757 Patient Instructions Patient Instructions face to faec, > 30 min total time he refused home health due to hoarding CLOVIS SALAZAR MD Feb 27, 2019 08:02
[2019-02-27] MEDS: FLUCONAZOLE 100 MG TABLET. PO SCH (08:32)
--- NOTE | 2019-02-27 10:43 | PDOC ---
Infectious Disease Note Subjective Subjective cont to have leg pain, much better ROS ROS no n/v/d/ Vital Sign Vital Signs Vital Signs Date Time Temp Pulse Resp B/P (MAP) Pulse Ox O2 Delivery O2 Flow Rate FiO2 02/27/19 08:32 Room Air 02/27/19 07:00 99.3 59 18 129/52 (77) 96 99.3 Physical Exam PHYSICAL EXAM GENERAL: Alert, oriented gentleman, not in distress. VITAL SIGNS: Stable HEENT: NAD. NECK: Supple, no JVP, no lymphadenopathy. LUNGS: Clear. HEART: S1, S2 regular. ABDOMEN: Benign. EXTREMITIES: No edema, cyanosis. SKIN: Unremarkable except the right leg, has distinct erythema on the right leg all the way to the groin. The patient does have tinea infection in the groin as well as between the toes, very poor hygiene with large toenails. NEUROLOGIC: The patient is alert, awake and appropriate. No focal neurologic deficit. Labs Lab Laboratory Tests Test 02/26/19 10:45 White Blood Count 3.2 x10^3/uL (4.0-11.0) Red Blood Count 3.25 x10^6/uL (4.30-5.70) Hemoglobin 11.6 g/dL (13.0-17.5) Hematocrit 32.6 % (39.0-53.0) Mean Corpuscular Volume 100 fL (79-100) Mean Corpuscular Hemoglobin 36 pg (25-35) Mean Corpuscular Hemoglobin Concent 36 g/dL (31-37) Red Cell Distribution Width 14.0 % (11.5-14.5) Platelet Count 98 x10^3/uL (140-400) Neutrophils (%) (Auto) 58 % (31-73) Lymphocytes (%) (Auto) 19 % (24-48) Monocytes (%) (Auto) 14 % (0-9) Eosinophils (%) (Auto) 8 % (0-3) Basophils (%) (Auto) 1 % (0-3) Neutrophils # (Auto) 1.9 x10^3/uL (1.8-7.7) Lymphocytes # (Auto) 0.6 x10^3/uL (1.0-4.8) Monocytes # (Auto) 0.4 x10^3/uL (0.0-1.1) Eosinophils # (Auto) 0.2 x10^3/uL (0.0-0.7) Basophils # (Auto) 0.0 x10^3/uL (0.0-0.2) Sodium Level 139 mmol/L (136-145) Potassium Level 4.1 mmol/L (3.5-5.1) Chloride Level 106 mmol/L (98-107) Carbon Dioxide Level 28 mmol/L (21-32) Anion Gap 5 (6-14) Blood Urea Nitrogen 16 mg/dL (8-26) Creatinine 1.1 mg/dL (0.7-1.3) Estimated GFR (Cockcroft-Gault) 66.6 BUN/Creatinine Ratio 15 (6-20) Glucose Level 125 mg/dL (70-99) Calcium Level 7.7 mg/dL (8.5-10.1) Total Bilirubin 1.5 mg/dL (0.2-1.0) Aspartate Amino Transf (AST/SGOT) 26 U/L (15-37) Alanine Aminotransferase (ALT/SGPT) 21 U/L (16-63) Alkaline Phosphatase 57 U/L (46-116) Total Protein 6.0 g/dL (6.4-8.2) Albumin 2.4 g/dL (3.4-5.0) Albumin/Globulin Ratio 0.7 (1.0-1.7) Micro Microbiology 02/22/19 Blood Culture - Preliminary, Resulted NO GROWTH AFTER 1 DAY Objective Assessment Rt leg cellulitis Tinea infection bet toes and in groin Cirrhosis of liver Fever Hep C Plan Plan of Care Simon,, soon to d/c on po keflex and diflucan diflucan adv to quit etoh need toe nail trimming f/u with me if needed JENNIFER GUEVARA MD Feb 27, 2019 10:43
[2019-02-27 10:55] VITALS: BP 125/51
--- NOTE | 2019-02-27 11:05 | NUR ---
Message sent to Dr. Martinez re: signing of pt's Rx.
[2019-02-27] MEDS ORDERED: CEPHALEXIN 250 MG CAPSULE. PO SCH (13:00)
--- NOTE | 2019-02-27 13:44 | NUR ---
Photo for d/c taken of RLE and placed in chart.
--- NOTE | 2019-02-27 13:45 | NUR ---
Cab called for pt's ride home, awaiting cab to arrive.
--- NOTE | 2019-02-27 14:10 | NUR ---
Pt. discharged to home with Rx, verbalized understanding of discharge instructions.
== END 2019-02-27 14:57 | disposition home or self-care (01) | DRG 602 ==
LOC: ER 18:40 → 4 NORTH 19:45
PROVIDERS: ADMIT Family Medicine; ATTEND Family Medicine
DX: L03.115 Cellulitis of right lower limb (principal); N17.0 Acute kidney failure with tubular necrosis; K76.6 Portal hypertension; Z68.41 Body mass index [BMI] 40.0-44.9, adult; E44.0 Moderate protein-calorie malnutrition; E66.9 Obesity, unspecified; B35.9 Dermatophytosis, unspecified; B19.20 Unspecified viral hepatitis C without hepatic coma; E83.42 Hypomagnesemia; F41.9 Anxiety disorder, unspecified; M54.5 Low back pain; I11.9 Hypertensive heart disease without heart failure; K74.60 Unspecified cirrhosis of liver; N28.9 Disorder of kidney and ureter, unspecified; Z82.49 Family history of ischemic heart disease and other diseases of the circulatory system; Z83.3 Family history of diabetes mellitus; Z60.2 Problems related to living alone
CPT/HCPCS: 36415; 71045; 71275; 76705; 80053; 80307; 81001; 82553; 83605; 83690; 83735; 83880; 84484; 85025; 85379; 85610; 85730; 87040; 93005; 93971; 96365; G0480; J0696; J3475; J3490; J7030; Q9967; 99285-25; G0378